=== PATIENT | female | born 1960 | race Caucasian/White ===

== ENCOUNTER → 2016-06-09 | Outpatient (CLI) | payer MEDICARE, OTHER ==
[2015-06-17 16:10] VITALS: BP 106/56
[~2016-06-09] MED LIST: ACET1TAB33 PO; ACET325T16 PO; ALPR0.25 PO; AMLO2.5T PO; ANAS1TAB PO; APIX2.5T PO; APIX5TAB PO; ASPI-482 PO; CALC-71 PO; CARV3.122 PO; CYCL1DRO EACHEYE; DEXT15DR5 EACHEYE; FERR325T31 PO; FOLI1TAB16 PO; FURO20TA3 PO; GABA-586 PO; LAMO200T PO; LEVO40CA PO; LEVO5TAB2 PO; LISI-338 PO; MESA800T2 PO; METF500T4 PO; METO25TA4 PO; METO25TA9 PO; MULT-18 PO; Metoprolol Tartrate PO; NITR1PAT5 TD; OMEG1CAP6 PO; PANT40TA5 PO; POTA10TA10 PO; POTA20TA4 PO; PROAIR HFA8.5 GM IH; RAMI5CAP PO; RANI150C PO; SOTA80TA PO; ZOLP10TA PO; atrovastatin
--- NOTE | 2016-06-09 13:12 | KCIC ---
PROCEDURE Two-view chest. HISTORY Post chest compressions for cardiac arrest 05/30/2016. Persistent pain in lower sternum and xiphoid area. Also lateral left ribs. COMPARISON Two-view chest June 12, 2015. FINDINGS Left chest dual chamber biventricular ICD is stable. There is moderate cardiomegaly, unchanged. Lungs are clear. No pleural effusion or pneumothorax. There appears to be acute slightly displaced fracture of the mid sternum. The inferior sternum is slightly offset anteriorly in relation to the upper sternum. A nondisplaced or subtle rib fracture could be obscured. There is significant overlap of ribs. No obvious displaced left rib fracture. IMPRESSION 1. No acute pulmonary process. Stable moderate cardiomegaly. 2. Acute slightly displaced fracture of the mid sternum. 3. As clinically warranted, CT could be performed to definitively evaluate for rib fractures. Electronically signed by: Daquan Carrillo MD (Jun 09, 2016 13:10:32)
== END | disposition home or self-care (01) ==
LOC: KCIC 11:53
PROVIDERS: ATTEND Family Medicine
DX: G89.29 Other chronic pain (principal)
CPT/HCPCS: 71020

== ENCOUNTER 2016-09-19 02:50 | Inpatient (IN) | payer MEDICARE, OTHER ==
[~2016-09-19] VITALS: Ht 182.9 cm; Wt 120.7 kg
[~2016-09-19 02:50] MED LIST changes: -POTA10TA10 PO; +POTA10TA12 PO; -SOTA80TA PO; +SOTA80TA48 PO
[2016-09-19] MEDS ORDERED: ONDANSETRON PF 4 MG/2 ML VIAL. IV ONE (03:30)
[2016-09-19] MEDS ORDERED: MAGNESIUM CITRATE 296 ML SOLUTION. PO ONE (03:30)
[2016-09-19] MEDS ORDERED: BISACODYL 5 MG TABLET.DR. PO PRN (03:30)
[2016-09-19] MEDS ORDERED: BISACODYL 10 MG SUPP.RECT. PR ONE (03:30)
[2016-09-19] MEDS ORDERED: ONDANSETRON ODT 4 MG TAB.RAPDIS. PO ONE (04:15)
[2016-09-19 04:36] LABS: BASO # 0.1 x10^3/uL (0.0-0.2); BASO % 0 % (0-3); EOS % 0 % (0-3); HEMATOCRIT 35.8 % (36.0-47.0); HEMOGLOBIN 11.5 g/dL (12.0-15.5); LYMPH # 0.9 x10^3/uL (1.0-4.8); LYMPH % 5 % (24-48); MEAN CORPUSCULAR HEMOGLOBIN 30 pg (25-35); MEAN CORPUSCULAR HGB CONC 32 g/dL (31-37); MEAN CORPUSCULAR VOLUME 93 fL (79-100); MONO % 8 % (0-9); NEUT % 86 % (31-73); PLATELET COUNT 310 x10^3/uL (140-400); RED BLOOD COUNT 3.86 x10^6/uL (3.50-5.40); RED CELL DISTRIBUTION WIDTH 15.3 % (11.5-14.5); WHITE BLOOD COUNT 15.8 x10^3/uL (4.0-11.0)
[2016-09-19 04:45] LABS: CALCIUM 9.1 mg/dL (8.5-10.1); CREATININE 2.1 mg/dL (0.6-1.0); GFR 24.2; POTASSIUM 4.9 mmol/L (3.5-5.1)
[2016-09-19 04:56] LABS: ALBUMIN 3.4 g/dL (3.4-5.0); TOTAL BILIRUBIN 1.5 mg/dL (0.2-1.0); TOTAL PROTEIN 6.8 g/dL (6.4-8.2)
--- NOTE | 2016-09-19 05:24 | PHYS DOC ---
Past Medical History Past Medical History: A-Fib, Anxiety, Cancer, CHF, Depression, Diabetes-Type II , Endometriosis, Hypertension Additional Past Medical Histor: Neuropathy Past Surgical History: Cholecystectomy, Hysterectomy, Tonsillectomy, Other Additional Past Surgical Histo: bilat breast lumpectomy, endometriosis, bowel resection, cataract bilat Alcohol Use: Rarely Drug Use: None Adult General Chief Complaint Chief Complaint: CONSTIPATION HPI HPI Patient is a 56 year old female who was recently admitted to the hospital secondary to irregular heartbeat/A. fib and had a recent ablation done ER Today from [facility] Secondary to Constipation. Patient Reports She Hasn't Moved Her Bowels for Approximately 3 Days. Patient Reports No Weakness of the Bathroom Daily. Patient Reports Her Last Bowel Movement Was about 2-3 Days Ago. Patient Reports That She Took a Suppository 2 Hours Ago without Any Relief. Patient Reports She's Been Drinking Milk of Magnesium Again without Any Relief. Patient Reports She Been Nauseous and Vomiting for Approximately 4 Days Now. Per the Nurse at the Facility with a Potassium Suppository inside Her Rectum Did Not Notice Any Impaction. Patient Denies Any Fevers Shakes Chills. No Dysuria Frequency or Urgency. Positive Nausea Vomiting. No Diarrhea. No Melena or Bright Red Blood per Rectum. Patient Denies Any History of Hypertension Diabetes CHF or COPD. Patient Denies Any Liver Lung or Kidney Problems in the past. Patient Is Status Post a Cholecystectomy, Hysterectomy, and a Bowel Resection Secondary to Endometriosis and Adhesions to Her Bowels. Patient Does Not Smoke or Drink. Patient Is Allergic to Erythromycin and Vicodin. Patient's physical exam is significant for diffuse tenderness to palpation. There was no rebound or guarding. There is normal active bowel sounds. Patient had tenderness greatest in her right upper quadrant. Patient's left groin has no bruits or thrills. There is surrounding bruising. Patient not exhibiting any signs or symptoms O be consistent with an acute surgical abdomen at this time. Patient's ER workup is significant for elevated liver function tests in the ER. Patient's BUN/creatinine are elevated from her prior admission. Patient had an obstruction series which was unremarkable. Had similar gas pattern was no free air or air-fluid levels. Upon arrival to the ER patient was given a bottle of mag citrate, Dulcolax suppositories and Dulcolax by mouth without any results of yet. Given the patient's elevated LFTs, her abdominal pain, her dehydration, and her constipation patient be admitted to the hospital for further workup and evaluation. A CT scan was ordered and is pending at the time. The case was discussed with Dr. mcdowell Review of Systems Review of Systems Constitutional: Denies fever or chills [] Eyes: Denies change in visual acuity, redness, or eye pain [] All other review systems are negative except as documented in the history of present illness portion. Current Medications Current Medications Current Medications Medications (Trade) Dose Ordered Sig/Carmelo Start Time Stop Time Status Last Admin Dose Admin Bisacodyl (Dulcolax Supp) 10 mg ONCE ONCE 09/19/16 03:30 09/19/16 03:31 DC 09/19/16 04:08 10 MG Bisacodyl (Dulcolax Tab) 10 mg PRN DAILY PRN 09/19/16 03:30 Magnesium Citrate (Citroma) 296 ml 1X ONCE 09/19/16 03:30 09/19/16 03:31 DC 09/19/16 04:08 296 ML Morphine Sulfate 4 mg PRN Q2HR PRN 09/19/16 05:15 09/20/16 05:14 UNV Ondansetron HCl (Zofran Odt) 4 mg 1X ONCE 09/19/16 04:15 09/19/16 04:16 DC 09/19/16 04:08 4 MG Ondansetron HCl (Zofran) 4 mg PRN Q8HRS PRN 09/19/16 05:30 09/20/16 05:29 Sodium Chloride 1,000 ml @ 125 mls/hr Q8H 09/19/16 05:12 09/20/16 05:11 UNV Allergies Allergies Allergies Coded Allergies Type Severity Reaction Last Updated Verified erythromycin base Allergy Intermediate 08/01/14 Yes hydrocodone Allergy Intermediate SEE COMMENT 06/09/15 Yes Physical Exam Physical Exam Constitutional: Well developed, well nourished, no acute distress, non-toxic appearance. [] HENT: Normocephalic, atraumatic, bilateral external ears normal, oropharynx moist, no oral exudates, nose normal. [] Eyes: PERRLA, EOMI, conjunctiva normal, no discharge. [] Neck: Normal range of motion, no tenderness, supple, no stridor. [] Cardiovascular:reg rate Lungs & Thorax: Bilateral breath sounds clear to auscultation [] Abdomen: Bowel sounds normal, soft, see above Skin: Warm, dry, no erythema, no rash. [] Back: No tenderness, no CVA tenderness. [] Extremities: No tenderness, no cyanosis, no clubbing, ROM intact, no edema. [] Neurologic: Alert and oriented X 3, normal motor function, normal sensory function, no focal deficits noted. [] Psychologic: Affect normal, judgement normal, mood normal. [] Current Patient Data Vital Signs Vital Signs Date Time Temp Pulse Resp B/P (MAP) Pulse Ox O2 Delivery O2 Flow Rate FiO2 09/19/16 03:05 98.2 99 18 153/79 (103) 97 Room Air 98.2 Lab Values Laboratory Tests Test 09/19/16 04:25 White Blood Count 15.8 x10^3/uL (4.0-11.0) H Red Blood Count 3.86 x10^6/uL (3.50-5.40) Hemoglobin 11.5 g/dL (12.0-15.5) L Hematocrit 35.8 % (36.0-47.0) L Mean Corpuscular Volume 93 fL (79-100) Mean Corpuscular Hemoglobin 30 pg (25-35) Mean Corpuscular Hemoglobin Concent 32 g/dL (31-37) Red Cell Distribution Width 15.3 % (11.5-14.5) H Platelet Count 310 x10^3/uL (140-400) Neutrophils (%) (Auto) 86 % (31-73) H Lymphocytes (%) (Auto) 5 % (24-48) L Monocytes (%) (Auto) 8 % (0-9) Eosinophils (%) (Auto) 0 % (0-3) Basophils (%) (Auto) 0 % (0-3) Neutrophils # (Auto) 13.7 x10^3uL (1.8-7.7) H Lymphocytes # (Auto) 0.9 x10^3/uL (1.0-4.8) L Monocytes # (Auto) 1.2 x10^3/uL (0.0-1.1) H Eosinophils # (Auto) 0.0 x10^3/uL (0.0-0.7) Basophils # (Auto) 0.1 x10^3/uL (0.0-0.2) Platelet Estimate Pending Sodium Level 135 mmol/L (136-145) L Potassium Level 4.9 mmol/L (3.5-5.1) Chloride Level 97 mmol/L (98-107) L Carbon Dioxide Level 23 mmol/L (21-32) Anion Gap 15 (6-14) H Blood Urea Nitrogen 34 mg/dL (7-20) H Creatinine 2.1 mg/dL (0.6-1.0) H Estimated GFR (Cockcroft-Gault) 24.2 BUN/Creatinine Ratio 16 (6-20) Glucose Level 152 mg/dL (70-99) H Calcium Level 9.1 mg/dL (8.5-10.1) Total Bilirubin 1.5 mg/dL (0.2-1.0) H Aspartate Amino Transferase (AST) 877 U/L (15-37) H Alanine Aminotransferase (ALT) 775 U/L (14-59) H Alkaline Phosphatase 121 U/L (46-116) H Total Protein 6.8 g/dL (6.4-8.2) Albumin 3.4 g/dL (3.4-5.0) Albumin/Globulin Ratio 1.0 (1.0-1.7) Lipase 303 U/L (73-393) Laboratory Tests 09/19/16 04:25 Laboratory Tests 09/19/16 04:25 EKG EKG [] Radiology/Procedures Radiology/Procedures [] Course & Med Decision Making Course & Med Decision Making Pertinent Labs and Imaging studies reviewed. (See chart for details) [] Dragon Disclaimer Dragon Disclaimer This electronic medical record was generated, in whole or in part, using a voice recognition dictation system. Departure Departure Impression: Primary Impression: Elevated LFTs Additional Impressions: Constipation Abdominal pain Dehydration Leukocytosis Disposition: ADMITTED INPATIENT Admitting Physician: Olive Mcdowell Referrals: EJ CLINTON MD (PCP) Problem Qualifiers Additional Impressions: Constipation Constipation type: unspecified constipation type Qualified Codes: K59.00 - Constipation, unspecified Abdominal pain Abdominal location: right upper quadrant Qualified Codes: R10.11 - Right upper quadrant pain Leukocytosis Leukocytosis type: unspecified Qualified Codes: D72.829 - Elevated white blood cell count, unspecified JEFF CARTER MD September 19, 2016 05:24
[2016-09-19] MEDS ORDERED: IV NORMAL SALINE 1000ML BAG 1,000 ML IV SCH (05:30)
--- NOTE | 2016-09-19 06:32 | RAD ---
PROCEDURE CT abdomen pelvis without contrast. HISTORY Abdominal pain and constipation x3 days. Elevated white blood cell count and liver function tests. TECHNIQUE Helical CT imaging of the abdomen and pelvis is performed without IV or oral contrast. PQRS: One or more the following individualized dose reduction techniques were utilized for the study: 1. Automated exposure control. 2. Adjustment of the mA and/or kV according to patient size. 3. Use of iterative reconstruction technique. COMPARISON CT abdomen and pelvis with contrast April 03, 2013. FINDINGS Surgical clips are seen in the inferior right breast. Correlate with surgical history. There is moderate cardiomegaly. There is small left pleural effusion. Left lower lobe consolidation and ground-glass opacities. Visualized right lung bases clear. Evaluation of solid organs and bowel is limited without oral and IV contrast, decreasing sensitivity for detection of pathology. Cholecystectomy. Small posterior right hepatic lobe cysts, better seen on prior study. The spleen, pancreas, and adrenal glands are normal. The abdominal aorta is normal in caliber. There is no hydronephrosis. No obvious abnormality of the stomach. No dilated small bowel is seen. No colon wall thickening is seen. The appendix is normal. No abdominal adenopathy or free fluid. There is moderate pelvic free fluid, probably abnormal. The urinary bladder is normal. Uterus surgically absent. No acute bone abnormality. IMPRESSION 1. Left lower lobe consolidation and ground-glass opacities may be bronchopneumonia or atelectasis or scarring. 2. There is small left pleural effusion. 3. Moderate cardiomegaly. 4. Moderate pelvic free fluid, probably abnormal unless patient is not postmenopausal. Electronically signed by: Daquan Carrillo MD (September 19, 2016 06:31:10)
--- NOTE | 2016-09-19 06:53 | RAD ---
Indication: Abdominal pain and constipation. Time of exam 0332 hours. No free air is identified. There are surgical clips in the gallbladder fossa. There appears to be a left pleural effusion. Cardiac defibrillator is in place. The bowel gas pattern is nonobstructive. Small amount of stool in the right and left colon are noted. Impression: Left pleural effusion. No acute feature in the abdomen is identified.
[2016-09-19] MEDS: ONDANSETRON PF 4 MG/2 ML VIAL. IV PRN ×3 (07:49→22:16)
[2016-09-19] MEDS ORDERED: ALLO100T PO (09:14)
[2016-09-19 09:31] LABS: NUCLEATED RBC 3; PLT ESTIMATE ADEQUATE (ADEQUATE)
[2016-09-19 09:32] LABS: POLYCHROMASIA PRESENT
[2016-09-19] MEDS ORDERED: MEXI200C PO (09:32)
[2016-09-19] MEDS ORDERED: SENN8.6T67 PO (09:32)
[2016-09-19] MEDS ORDERED: BISA10SU55 RC (09:32)
[2016-09-19] MEDS ORDERED: ONDA-35 PO (09:32)
[2016-09-19] MEDS ORDERED: MIDO10TA PO (09:32)
[2016-09-19] MEDS ORDERED: DIPH25CA58 PO (09:32)
[2016-09-19] MEDS ORDERED: ONDA4TAB10 SL (09:32)
[2016-09-19] MEDS ORDERED: DOCU100C5 PO (09:32)
[2016-09-19] MEDS ORDERED: TRIA15OI TOP (09:32)
[2016-09-19] MEDS ORDERED: BUME1TAB PO ×2 (09:32)
[2016-09-19] MEDS ORDERED: MAGN2400 PO (09:32)
[2016-09-19] MEDS ORDERED: NA P133E2 RC (09:32)
[2016-09-19] MEDS ORDERED: AMIO400T4 PO (09:32)
[2016-09-19] MEDS ORDERED: CALC-169 PO (09:32)
[2016-09-19] MEDS ORDERED: SPIR25TA3 PO (09:32)
[2016-09-19] MEDS ORDERED: MECL25TA3 PO (09:32)
[2016-09-19] MEDS: MORPHINE SULFATE 4 MG/ML DISP.SYRIN. IV PRN ×2 (09:44→20:35)
--- NOTE | 2016-09-19 09:53 | PDOC1 ---
History and Physical Past Medical History Cardiovascular: AFIB, CHF CENTRAL NERVOUS SYSTEM: Periperal neuropathy GI: GI bleed, Other Heme/Onc: Anemia NOS Hepatobiliary: No pertinent hx Psych: Anxiety, Bipolar, Depression Rheumatologic: No pertinent hx Infectious disease: No pertinent hx Renal/: Chronic renal insuff Endocrine: Osteoporosis, Other Past Surgical History Past Surgical History: Cataract Removal, Tonsillectomy, Hysterectomy, Colon Resection, Other Family History Family History: Cancer, Diabetes, Hypertension, Stroke Social History ALCOHOL: none Drugs: None Current Problem List Problem List Problems Medical Problems: (1) Abdominal pain Status: Acute (2) Constipation Status: Acute (3) Dehydration Status: Acute (4) Elevated LFTs Status: Acute (5) Leukocytosis Status: Acute Current Medications Current Medications Current Medications Medications (Trade) Dose Ordered Sig/Carmelo Start Time Stop Time Status Last Admin Dose Admin Bisacodyl (Dulcolax Supp) 10 mg ONCE ONCE 09/19/16 03:30 09/19/16 03:31 DC 09/19/16 04:08 10 MG Bisacodyl (Dulcolax Tab) 10 mg PRN DAILY PRN 09/19/16 03:30 Magnesium Citrate (Citroma) 296 ml 1X ONCE 09/19/16 03:30 09/19/16 03:31 DC 09/19/16 04:08 296 ML Morphine Sulfate 4 mg PRN Q2HR PRN 09/19/16 05:30 09/20/16 05:29 09/19/16 09:44 4 MG Ondansetron HCl (Zofran Odt) 4 mg 1X ONCE 09/19/16 04:15 09/19/16 04:16 DC 09/19/16 04:08 4 MG Ondansetron HCl (Zofran) 4 mg PRN Q8HRS PRN 09/19/16 05:30 09/20/16 05:29 09/19/16 07:49 4 MG Piperacillin Sod/ Tazobactam Sod 3.375 gm/Sodium Chloride 50 ml @ 100 mls/hr Q6HRS 09/19/16 12:00 UNV Sodium Chloride 1,000 ml @ 75 mls/hr [id number] 09/19/16 10:00 UNV Allergies Allergies Allergies Coded Allergies Type Severity Reaction Last Updated Verified erythromycin base Allergy Intermediate 08/01/14 Yes hydrocodone Allergy Intermediate SEE COMMENT 06/09/15 Yes ROS Review of System CONSTITUTIONAL: weakness, fatigues EYES: No recent changes SKIN: No rash or itching CARDIOVASCULAR: No chest pain, syncope, palpitations, or edema RESPIRATORY: No SOB or cough GASTROINTESTINAL: nausea, vomiting or abdominal pain NEUROLOGICAL: No headaches or weakness ENDOCRINE: No cold or heat intolerance GENITOURINARY: No urgency or frequency of urination MUSCULOSKELETAL: No back pain or joint pain LYMPHATICS: No enlarged lymph nodes PSYCHIATRIC: No anxiety or depression Physical Exam Physical Exam GEN.: No apparent distress. Alert and oriented. HEENT: Head is normocephalic, atraumatic NECK: Supple. no JVD LUNGS: crackles at bases, normal air flow anterior HEART: RRR, S1, S2 present. Peripheral pulses intact ABDOMEN: Soft, nontender. Positive bowel sounds. EXTREMITIES: Without any cyanosis. NEUROLOGIC: Normal speech, normal tone PSYCHIATRIC: Normal affect, normal mood. SKIN: dry, dehydrated. Vitals Vitals Vital Signs Date Time Temp Pulse Resp B/P (MAP) Pulse Ox O2 Delivery O2 Flow Rate FiO2 09/19/16 03:05 98.2 99 18 153/79 (103) 97 Room Air 98.2 Labs Labs Laboratory Tests Test 09/19/16 04:25 09/19/16 07:31 White Blood Count 15.8 x10^3/uL (4.0-11.0) Red Blood Count 3.86 x10^6/uL (3.50-5.40) Hemoglobin 11.5 g/dL (12.0-15.5) Hematocrit 35.8 % (36.0-47.0) Mean Corpuscular Volume 93 fL (79-100) Mean Corpuscular Hemoglobin 30 pg (25-35) Mean Corpuscular Hemoglobin Concent 32 g/dL (31-37) Red Cell Distribution Width 15.3 % (11.5-14.5) Platelet Count 310 x10^3/uL (140-400) Neutrophils (%) (Auto) 86 % (31-73) Lymphocytes (%) (Auto) 5 % (24-48) Monocytes (%) (Auto) 8 % (0-9) Eosinophils (%) (Auto) 0 % (0-3) Basophils (%) (Auto) 0 % (0-3) Neutrophils # (Auto) 13.7 x10^3uL (1.8-7.7) Lymphocytes # (Auto) 0.9 x10^3/uL (1.0-4.8) Monocytes # (Auto) 1.2 x10^3/uL (0.0-1.1) Eosinophils # (Auto) 0.0 x10^3/uL (0.0-0.7) Basophils # (Auto) 0.1 x10^3/uL (0.0-0.2) Segmented Neutrophils % 87 % (35-66) Band Neutrophils % 1 % (0-9) Lymphocytes % 5 % (24-48) Monocytes % 7 % (0-10) Nucleated Red Blood Cells 3 Platelet Estimate Adequate (ADEQUATE) Large Platelets Present Polychromasia Present Sodium Level 135 mmol/L (136-145) Potassium Level 4.9 mmol/L (3.5-5.1) Chloride Level 97 mmol/L (98-107) Carbon Dioxide Level 23 mmol/L (21-32) Anion Gap 15 (6-14) Blood Urea Nitrogen 34 mg/dL (7-20) Creatinine 2.1 mg/dL (0.6-1.0) Estimated GFR (Cockcroft-Gault) 24.2 BUN/Creatinine Ratio 16 (6-20) Glucose Level 152 mg/dL (70-99) Calcium Level 9.1 mg/dL (8.5-10.1) Total Bilirubin 1.5 mg/dL (0.2-1.0) Aspartate Amino Transf (AST/SGOT) 877 U/L (15-37) Alanine Aminotransferase (ALT/SGPT) 775 U/L (14-59) Alkaline Phosphatase 121 U/L (46-116) Total Protein 6.8 g/dL (6.4-8.2) Albumin 3.4 g/dL (3.4-5.0) Albumin/Globulin Ratio 1.0 (1.0-1.7) Lipase 303 U/L (73-393) Glucose (Fingerstick) 115 mg/dL (70-99) Laboratory Tests Test 09/19/16 04:25 09/19/16 07:31 White Blood Count 15.8 x10^3/uL (4.0-11.0) Red Blood Count 3.86 x10^6/uL (3.50-5.40) Hemoglobin 11.5 g/dL (12.0-15.5) Hematocrit 35.8 % (36.0-47.0) Mean Corpuscular Volume 93 fL (79-100) Mean Corpuscular Hemoglobin 30 pg (25-35) Mean Corpuscular Hemoglobin Concent 32 g/dL (31-37) Red Cell Distribution Width 15.3 % (11.5-14.5) Platelet Count 310 x10^3/uL (140-400) Neutrophils (%) (Auto) 86 % (31-73) Lymphocytes (%) (Auto) 5 % (24-48) Monocytes (%) (Auto) 8 % (0-9) Eosinophils (%) (Auto) 0 % (0-3) Basophils (%) (Auto) 0 % (0-3) Neutrophils # (Auto) 13.7 x10^3uL (1.8-7.7) Lymphocytes # (Auto) 0.9 x10^3/uL (1.0-4.8) Monocytes # (Auto) 1.2 x10^3/uL (0.0-1.1) Eosinophils # (Auto) 0.0 x10^3/uL (0.0-0.7) Basophils # (Auto) 0.1 x10^3/uL (0.0-0.2) Segmented Neutrophils % 87 % (35-66) Band Neutrophils % 1 % (0-9) Lymphocytes % 5 % (24-48) Monocytes % 7 % (0-10) Nucleated Red Blood Cells 3 Platelet Estimate Adequate (ADEQUATE) Large Platelets Present Polychromasia Present Sodium Level 135 mmol/L (136-145) Potassium Level 4.9 mmol/L (3.5-5.1) Chloride Level 97 mmol/L (98-107) Carbon Dioxide Level 23 mmol/L (21-32) Anion Gap 15 (6-14) Blood Urea Nitrogen 34 mg/dL (7-20) Creatinine 2.1 mg/dL (0.6-1.0) Estimated GFR (Cockcroft-Gault) 24.2 BUN/Creatinine Ratio 16 (6-20) Glucose Level 152 mg/dL (70-99) Calcium Level 9.1 mg/dL (8.5-10.1) Total Bilirubin 1.5 mg/dL (0.2-1.0) Aspartate Amino Transf (AST/SGOT) 877 U/L (15-37) Alanine Aminotransferase (ALT/SGPT) 775 U/L (14-59) Alkaline Phosphatase 121 U/L (46-116) Total Protein 6.8 g/dL (6.4-8.2) Albumin 3.4 g/dL (3.4-5.0) Albumin/Globulin Ratio 1.0 (1.0-1.7) Lipase 303 U/L (73-393) Glucose (Fingerstick) 115 mg/dL (70-99) VTE Prophylaxis Ordered VTE Prophylaxis Devices: Yes VTE Pharmacological Prophylaxi: Yes GAGE CAMARILLO MD September 19, 2016 09:53
[2016-09-19] MEDS: IV NORMAL SALINE 1000ML BAG 1,000 ML IV SCH ×2 (10:00→22:12)
[2016-09-19] MEDS ORDERED: VANCOMYCIN PER PHARMACY MC PRN (10:30)
[2016-09-19] MEDS ORDERED: hydrALAZINE 20 MG/ML VIAL. IVP PRN (10:30)
[2016-09-19] MEDS ORDERED: ALBUTEROL SULFATE 2.5 MG/3 ML NEBU. NEB PRN (10:30)
[2016-09-19] MEDS ORDERED: BISACODYL 10 MG SUPP.RECT. PR PRN (10:30)
[2016-09-19] MEDS ORDERED: MAGNESIUM HYDROXIDE 2,400 MG/30 ML ORAL.SUSP. PO PRN (10:30)
[2016-09-19] MEDS ORDERED: ONDANSETRON PF 4 MG/2 ML VIAL. IV PRN (10:30)
[2016-09-19] MEDS ORDERED: BISACODYL 10 MG SUPP.RECT. RC PRN (10:30)
[2016-09-19] MEDS ORDERED: ACETAMINOPHEN 325 MG TABLET. PO PRN (10:30)
[2016-09-19] MEDS ORDERED: VANCOMYCIN 2 GM in IV NORMAL SALINE 500ML BAG 500 ML IV ONE (10:45)
--- NOTE | 2016-09-19 10:47 | PDOC2 ---
GI CONSULT Reason For Consult: Abd pain, elevated LFTs HPI: HPI: 56 y/o female who underwent ablation for A Fib on 09/07 and has been in rehab. Since then, has had GI issues including n/v, decreased appetite, and constipation. GI consulted re: abd pain and abnormal LFTs which she has a history of. Labs as below include WBC 15.8, Hgb 11.5, Cr 2.1, bili 1.5 (has been 1.9 in the past), AST 877, ALT 775, Alk Phos 121 (some elevatetion in past) . Constipation unresolved w/ suppositories and Milk of Magnesia. Passed small hard stool on Monday; yesterday did not pass stool but noted some blood on her hand w/ wiping. Is on Eliquis, iron, PPI, IV atbx, Zofran, and Dulcolax here. Reports colonoscopy showing microscopic colitis (untreated) ~5 years ago. No previous EGD. Has not been taking pain meds recently. PMH: PMH: CHF, A Fib s/p ablation, HTN, DM (diet controlled), CKD, breast cancer, anxiety/ depression, endometriosis, peripheral neuropathy, tonsillectomy, colon resection for endometriosis, bilateral partial mastectomies and chemo/radiation , pacemaker, cataract extraction, partial hysterectomy, cholecystectomy FH: Family History: No pertinent hx (denies GI cancers) Social History: ALCOHOL: none Drugs: None ROS: GEN: Denies fevers, chills, sweats HEENT: Denies blurred vision, sore throat CV: Denies chest pain RESP: Denies shortness of air, cough GI: Per HPI : Denies hematuria, dysuria ENDO: Denies weight changes NEURO: Denies confusion, dizziness MSK: +weakness SKIN: Denies jaundice, pruritus Vitals: Vitals: Vital Signs Date Time Temp Pulse Resp B/P (MAP) Pulse Ox O2 Delivery O2 Flow Rate FiO2 09/19/16 03:05 98.2 99 18 153/79 (103) 97 Room Air 98.2 Labs: Labs: Laboratory Tests Test 09/19/16 04:25 09/19/16 07:31 White Blood Count 15.8 x10^3/uL (4.0-11.0) Red Blood Count 3.86 x10^6/uL (3.50-5.40) Hemoglobin 11.5 g/dL (12.0-15.5) Hematocrit 35.8 % (36.0-47.0) Mean Corpuscular Volume 93 fL (79-100) Mean Corpuscular Hemoglobin 30 pg (25-35) Mean Corpuscular Hemoglobin Concent 32 g/dL (31-37) Red Cell Distribution Width 15.3 % (11.5-14.5) Platelet Count 310 x10^3/uL (140-400) Neutrophils (%) (Auto) 86 % (31-73) Lymphocytes (%) (Auto) 5 % (24-48) Monocytes (%) (Auto) 8 % (0-9) Eosinophils (%) (Auto) 0 % (0-3) Basophils (%) (Auto) 0 % (0-3) Neutrophils # (Auto) 13.7 x10^3uL (1.8-7.7) Lymphocytes # (Auto) 0.9 x10^3/uL (1.0-4.8) Monocytes # (Auto) 1.2 x10^3/uL (0.0-1.1) Eosinophils # (Auto) 0.0 x10^3/uL (0.0-0.7) Basophils # (Auto) 0.1 x10^3/uL (0.0-0.2) Segmented Neutrophils % 87 % (35-66) Band Neutrophils % 1 % (0-9) Lymphocytes % 5 % (24-48) Monocytes % 7 % (0-10) Nucleated Red Blood Cells 3 Platelet Estimate Adequate (ADEQUATE) Large Platelets Present Polychromasia Present Sodium Level 135 mmol/L (136-145) Potassium Level 4.9 mmol/L (3.5-5.1) Chloride Level 97 mmol/L (98-107) Carbon Dioxide Level 23 mmol/L (21-32) Anion Gap 15 (6-14) Blood Urea Nitrogen 34 mg/dL (7-20) Creatinine 2.1 mg/dL (0.6-1.0) Estimated GFR (Cockcroft-Gault) 24.2 BUN/Creatinine Ratio 16 (6-20) Glucose Level 152 mg/dL (70-99) Calcium Level 9.1 mg/dL (8.5-10.1) Total Bilirubin 1.5 mg/dL (0.2-1.0) Aspartate Amino Transf (AST/SGOT) 877 U/L (15-37) Alanine Aminotransferase (ALT/SGPT) 775 U/L (14-59) Alkaline Phosphatase 121 U/L (46-116) Total Protein 6.8 g/dL (6.4-8.2) Albumin 3.4 g/dL (3.4-5.0) Albumin/Globulin Ratio 1.0 (1.0-1.7) Lipase 303 U/L (73-393) Glucose (Fingerstick) 115 mg/dL (70-99) Allergies: Coded Allergies: erythromycin base (Verified Allergy, Intermediate, 08/01/14) hydrocodone (Verified Allergy, Intermediate, SEE COMMENT, 06/09/15) PT REPORTS TO RN THAT SHE TOLERATES CODEINE WITHOUT COMPLICATIONS. Medications: Current Medications Medications (Trade) Dose Ordered Sig/Carmelo Route PRN Reason Start Time Stop Time Status Last Admin Dose Admin Bisacodyl (Dulcolax Supp) 10 mg ONCE ONCE FL 09/19/16 03:30 09/19/16 03:31 DC 09/19/16 04:08 Magnesium Citrate (Citroma) 296 ml 1X ONCE PO 09/19/16 03:30 09/19/16 03:31 DC 09/19/16 04:08 Ondansetron HCl (Zofran Odt) 4 mg 1X ONCE PO 09/19/16 04:15 09/19/16 04:16 DC 09/19/16 04:08 Ondansetron HCl (Zofran) 4 mg PRN Q8HRS PRN IV NAUSEA/VOMITING 09/19/16 05:30 09/20/16 05:29 09/19/16 07:49 Morphine Sulfate 4 mg PRN Q2HR PRN IV PAIN 09/19/16 05:30 09/20/16 05:29 09/19/16 09:44 Sodium Chloride 1,000 ml @ 125 mls/hr Q8H IV 09/19/16 05:30 09/20/16 05:29 09/19/16 07:50 Imaging: Imaging: CT A/P w/o contrast FINDINGS Surgical clips are seen in the inferior right breast. Correlate with surgical history. There is moderate cardiomegaly. There is small left pleural effusion. Left lower lobe consolidation and ground-glass opacities. Visualized right lung bases clear. Evaluation of solid organs and bowel is limited without oral and IV contrast, decreasing sensitivity for detection of pathology. Cholecystectomy. Small posterior right hepatic lobe cysts, better seen on prior study. The spleen, pancreas, and adrenal glands are normal. The abdominal aorta is normal in caliber. There is no hydronephrosis. No obvious abnormality of the stomach. No dilated small bowel is seen. No colon wall thickening is seen. The appendix is normal. No abdominal adenopathy or free fluid. There is moderate pelvic free fluid, probably abnormal. The urinary bladder is normal. Uterus surgically absent. No acute bone abnormality. IMPRESSION 1. Left lower lobe consolidation and ground-glass opacities may be bronchopneumonia or atelectasis or scarring. 2. There is small left pleural effusion. 3. Moderate cardiomegaly. 4. Moderate pelvic free fluid, probably abnormal unless patient is not postmenopausal. Acute abd series Impression: Left pleural effusion. No acute feature in the abdomen is identified. Abd US 2014 Impression: 1. Mildly echogenic liver, most likely from fatty liver disease. 2. Small hepatic cyst. 3. Status post cholecystectomy. Common bile duct is mildly dilated at 8 mm, possibly representing reservoir effect from patient's cholecystectomy. Correlate with laboratory values for any possibility of biliary obstruction. PE: GEN: holding emesis basin, hunched over on bed HEENT: Atraumatic, PERRL LUNGS: CTAB HEART: S1S2 ABD: BS+, epigastric tenderness to touch, RLQ pain EXTREMITY: No edema SKIN: No rashes, no jaundice NEURO/PSYCH: A & O 3 A/P: A/P: N/v, abd pain, constipation -per history, n/v and constipation since cardiac ablation ---> epigastric and RLQ tenderness on exam -h/o diet-controlled DM, denies GERD Elevated LFTs CRC screen -colonoscopy ~5 years ago Rectal bleeding -once yesterday Leukocytosis, elevated Cr -on IV atbx -per primary -- Check abd US, Hepatitis panel, and iron profile re: elevated LFTs. Agree w/ PPI. Will add Amitiza + Miralax for constipation. NYDIA PENALOZA September 19, 2016 10:47
[2016-09-19] MEDS: FERROUS SULFATE 325 MG TABLET. PO SCH (11:00)
[2016-09-19] MEDS: NITROGLYCERIN 0.2MG/HR PATCH. TD SCH (11:00)
[2016-09-19] MEDS ORDERED: APIXABAN 5 MG TABLET. PO SCH (11:00)
[2016-09-19] MEDS: PANTOPRAZOLE 40 MG TABLET.DR. PO SCH (11:00)
[2016-09-19] MEDS: FOLIC ACID 1 MG TABLET. PO SCH (11:00)
[2016-09-19] MEDS: ASPIRIN ENTERIC COATED 81 MG TABLET.DR. PO SCH (11:00)
[2016-09-19] MEDS ORDERED: SPIRONOLACTONE 25 MG TABLET PO SCH (11:00)
[2016-09-19] MEDS: ALLOPURINOL 100 MG TABLET. PO SCH (11:00)
[2016-09-19] MEDS: POLYETHYLENE GLYCOL 3350 17 GM PACKET. PO SCH (11:00)
[2016-09-19] MEDS: SENNOSIDES 8.6 MG TABLET PO SCH ×2 (11:00→20:38)
--- NOTE | 2016-09-19 11:30 | PDOC2 ---
CARDIAC CONSULT DATE OF CONSULT Date of Consult DATE: 09/19/16 TIME: 11:14 REASON FOR CONSULT Reason for Consult: AFIB, CHF, on AICD REFERRING PHYSICIAN Referring Physician: Luh SOURCE Source: Chart review, Patient HISTORY OF PRESENT ILLNESS HISTORY OF PRESENT ILLNESS This is a pleasant 56 yo female admitted for complains of constipation, nausea, vomiting, and abdominal pain. Pt recently had cardiac ablation in relation to her AFIB at . She did well with that procedure and [facility] Reports that she has not been having any palpitations, SOA, or chest pain. Denies any blood in her stool or vomit. Consult is for afib and currently stable. Presently she is still dry heaving when she was about to eat. She has not had any decent BM in the last 6 days and when she had one it was a hard stool. Her mother was at the bedside claiming that at she was shocked 22 times during her ablation procedure. Denies any fever or chills. PAST MEDICAL HISTORY Past Medical History Cardiovascular: AFIB, CHF (NICM) CENTRAL NERVOUS SYSTEM: Peripheral neuropathy GI: GI bleed, Other (colitis) Heme/Onc: Anemia NOS, breast CA with chemotherapy 2008 Hepatobiliary: No pertinent hx Psych: Anxiety, Bipolar, Depression Musculoskeletal: Osteoarthritis Rheumatologic: No pertinent hx Infectious disease: No pertinent hx ENT: No pertinent hx Renal/: Chronic renal insuff Endocrine: Osteoporosis, Other (endometriosis) Dermatology: No pertinent hx PAST SURGICAL HISTORY Past Surgical History Cataract Removal, Tonsillectomy, Hysterectomy, Colon Resection, Other (right partial mastectomy), 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, 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 ablation FAMILY HISTORY Family History Cancer (thyroid sister), Diabetes, Hypertension (father), Stroke (brotherat 54) SOCIAL HISTORY Smoke: No ALCOHOL: none Drugs: None Lives: Long-Term CURRENT MEDICATIONS CURRENT MEDICATIONS Current Medications Medications (Trade) Dose Ordered Sig/Carmelo Route PRN Reason Start Time Stop Time Status Last Admin Dose Admin Bisacodyl (Dulcolax Supp) 10 mg ONCE ONCE VT 09/19/16 03:30 09/19/16 03:31 DC 09/19/16 04:08 Magnesium Citrate (Citroma) 296 ml 1X ONCE PO 09/19/16 03:30 09/19/16 03:31 DC 09/19/16 04:08 Ondansetron HCl (Zofran Odt) 4 mg 1X ONCE PO 09/19/16 04:15 09/19/16 04:16 DC 09/19/16 04:08 Ondansetron HCl (Zofran) 4 mg PRN Q8HRS PRN IV NAUSEA/VOMITING 09/19/16 05:30 09/20/16 05:29 09/19/16 07:49 Morphine Sulfate 4 mg PRN Q2HR PRN IV PAIN 09/19/16 05:30 09/20/16 05:29 09/19/16 09:44 Sodium Chloride 1,000 ml @ 125 mls/hr Q8H IV 09/19/16 05:30 09/20/16 05:29 09/19/16 07:50 Sodium Chloride 1,000 ml @ 75 mls/hr [id number] IV 09/19/16 10:00 09/19/16 10:00 ALLERGIES ALLERGIES: Coded Allergies: erythromycin base (Verified Allergy, Intermediate, 08/01/14) hydrocodone (Verified Allergy, Intermediate, SEE COMMENT, 06/09/15) PT REPORTS TO RN THAT SHE TOLERATES CODEINE WITHOUT COMPLICATIONS. ROS Review of System 14 point ROS evaluated with pertinent positives noted per HPI PHYSICAL EXAM General: Alert, Oriented X3, Cooperative, No acute distress HEENT: Atraumatic, Mucous membr. moist/pink Lungs: Clear to auscultation, Normal air movement Heart: Normal S1, Normal S2 Abdomen: Soft, Other (diffuse tenderness) Extremities: No cyanosis, Other (1+ bilateral LE pitting edema) Skin: No breakdown, No significant lesion Neuro: Normal speech, Sensation intact Psych/Mental Status: Mental status NL, Mood NL MUSCULOSKELETAL: Osteoarthritic changes both hands VITALS VITALS Vital Signs Date Time Temp Pulse Resp B/P (MAP) Pulse Ox O2 Delivery O2 Flow Rate FiO2 09/19/16 03:05 98.2 99 18 153/79 (103) 97 Room Air 98.2 LABS Lab: Laboratory Tests Test 09/19/16 04:25 09/19/16 07:31 09/19/16 10:07 White Blood Count 15.8 x10^3/uL (4.0-11.0) Red Blood Count 3.86 x10^6/uL (3.50-5.40) Hemoglobin 11.5 g/dL (12.0-15.5) Hematocrit 35.8 % (36.0-47.0) Mean Corpuscular Volume 93 fL (79-100) Mean Corpuscular Hemoglobin 30 pg (25-35) Mean Corpuscular Hemoglobin Concent 32 g/dL (31-37) Red Cell Distribution Width 15.3 % (11.5-14.5) Platelet Count 310 x10^3/uL (140-400) Neutrophils (%) (Auto) 86 % (31-73) Lymphocytes (%) (Auto) 5 % (24-48) Monocytes (%) (Auto) 8 % (0-9) Eosinophils (%) (Auto) 0 % (0-3) Basophils (%) (Auto) 0 % (0-3) Neutrophils # (Auto) 13.7 x10^3uL (1.8-7.7) Lymphocytes # (Auto) 0.9 x10^3/uL (1.0-4.8) Monocytes # (Auto) 1.2 x10^3/uL (0.0-1.1) Eosinophils # (Auto) 0.0 x10^3/uL (0.0-0.7) Basophils # (Auto) 0.1 x10^3/uL (0.0-0.2) Segmented Neutrophils % 87 % (35-66) Band Neutrophils % 1 % (0-9) Lymphocytes % 5 % (24-48) Monocytes % 7 % (0-10) Nucleated Red Blood Cells 3 Platelet Estimate Adequate (ADEQUATE) Large Platelets Present Polychromasia Present Sodium Level 135 mmol/L (136-145) Potassium Level 4.9 mmol/L (3.5-5.1) Chloride Level 97 mmol/L (98-107) Carbon Dioxide Level 23 mmol/L (21-32) Anion Gap 15 (6-14) Blood Urea Nitrogen 34 mg/dL (7-20) Creatinine 2.1 mg/dL (0.6-1.0) Estimated GFR (Cockcroft-Gault) 24.2 BUN/Creatinine Ratio 16 (6-20) Glucose Level 152 mg/dL (70-99) Calcium Level 9.1 mg/dL (8.5-10.1) Total Bilirubin 1.5 mg/dL (0.2-1.0) Aspartate Amino Transf (AST/SGOT) 877 U/L (15-37) Alanine Aminotransferase (ALT/SGPT) 775 U/L (14-59) Alkaline Phosphatase 121 U/L (46-116) Total Protein 6.8 g/dL (6.4-8.2) Albumin 3.4 g/dL (3.4-5.0) Albumin/Globulin Ratio 1.0 (1.0-1.7) Lipase 303 U/L (73-393) Glucose (Fingerstick) 115 mg/dL (70-99) 96 mg/dL (70-99) ECHOCARDIOGRAM ECHOCARDIOGRAM <Conclusion> Severe LV systolic dysfunction. EF 10-15% Moderate to severe MR. Mild to moderate TR. DATE: 06/15/15 1317 STRESS TEST STRESS TEST PROCEDURE NARRATIVE Please see procedure log for procedure narrative. The left main coronary artery is a large size vessel . There is a 0% stenosis . The left anterior descending artery is a large size vessel . There is a 0% stenosis . The circumflex artery is a medium size vessel . There is a 0% stenosis . The right coronary artery is a large size vessel . There is a 0% stenosis . <Conclusion> DATE: 08/01/14 0848 ASSESSMENT/PLAN ASSESSMENT/PLAN 1. Abdominal pain/constipation with severe transaminitis: GI following. Hepatotoxicity? with amiodarone(400 mg daily), mesalamine, lamictal use and possible narcotic use 2. 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 NYHA 3. Last known EF 10-15%. Likely chemo induced with known use of adriamycin and cytoxan in the past 3. Chronic systolic CHF: compensated 4. LADI on CKD: suspect stage 3. Appears prerenal with 4 days of n/v. Nephrology has been consulted 5. PAFIB: 09/07/2016 cardiac ablation. on Eliquis, Hgb stable. 6. Orthostasis?: on midodrine Recommendations 1. Hgb and PLT stable. Continue on eliquis. PT INR today. 2. EKG. Place on tele monitor. Interrogate device. Obtain records from [facility] in regards to ablation 3. F/U TTE. 4. Continue with present regimen 5. Lipid panel and Mg. 6. Stop Amiodarone. No statin if there is any. Lamictal/mesalamine would also be synergistic defer this to PCP/GI 7. With amiodarone DCd. Will start on Dig po 0.125 mg and toprol XL 50 mg po daily (this was in her prior regimen) 8. Await records for EP recommendation from prior ablation and will discuss with primary machine bender Problems: BALTAZAR GREWAL APRN September 19, 2016 11:30
--- NOTE | 2016-09-19 11:51 | HP ---
ADMIT DATE: 09/19/2016 CHIEF COMPLAINT: Abdominal pain, nausea and vomiting. HISTORY OF PRESENT ILLNESS: A 56-year-old female patient with several comorbid conditions who recently admitted to the [facility] nearly one week ago for AFib. At the time, she had a cardioversion done; however it failed and later, she was requiring ablation. Post-ablation, the patient was transferred to [facility] for rehabilitate, however, she is having nausea, vomiting and abdominal pain and constipation for one week, but symptoms slowly got worse for last few days, maybe 2-3 days. She has tried several methods such as milk of magnesia, but no relief was seen and at the time of her presentation to the ER, she was having some tenderness. CT of the abdomen showed lower lobe suspected pneumonia. At the time of my examination this morning, the patient appears to be dehydrated and fatigued and weak and still complaining of abdominal pain and constipation. She denies any fever or chills. PAST MEDICAL HISTORY: 1. AFib, recent ablation at [facility]. 2. Anxiety. 3. Breast cancer, currently in remission. 4. Congestive heart failure with ejection fraction of 15%. 5. Type 2 diabetes mellitus, medically managed with oral medications. 6. Hypertension. 7. Neuropathy. PAST SURGICAL HISTORY: 1. Cholecystectomy. 2. Hysterectomy. 3. Tonsillectomy. 4. Bilateral breast lumpectomy. 5. Endometriosis. 6. Bowel resection. PERSONAL HISTORY: No smoking, no alcohol, and no drug abuse. FAMILY HISTORY: Please see my electronic H and P. REVIEW OF SYSTEMS: Please see my electronic H and P. PHYSICAL EXAMINATION: Please see my electronic H and P. LABORATORY DATA: WBC 15.8, hemoglobin is 11.5, MCV is 93, and platelets is 310 and segmented neutrophils 87%. Chemistry: Sodium is 135, potassium 4.9, chloride is 97, carbon dioxide 23, anion gap is 15, BUN is 34, creatinine is 2.1, GFR is 24.2, glucose is 152. AST is 877, ALT is 775, ALP is 121. IMAGING STUDIES: Acute abdomen and pelvis CT showed there is left lower lobe consolidation and ground glass opacities, moderate cardiomegaly and small left-sided pleural effusion. ASSESSMENT AND PLAN: 1. Left lower lobe suspected pneumonia, possible gram negative. 2. Congestive heart failure, history with ejection fraction of 15%. 3. Recent atrial fibrillation, history with status post ablation and [facility] recently one week ago. 4. Hypertension. 5. Depression. 6. Dehydration. 7. Acute kidney injury and chronic kidney disease. 8. History of breast cancer and currently in remission. PLAN: 1. She has been admitted to the hospital for constipation, nausea, and vomiting. I will start her on constipation protocol. She received Dulcolax suppository and milk of magnesia. I will wait for the response and also Gastroenterology has been following. Meanwhile, I will treat her symptomatically with IV Zofran and p.r.n. Reglan. 2. I will hold her diuretics Bumex at this time and consult Cardiology for further recommendations. 3. Mild IV hydration at 75 mL per hour. 4. I will start her on vancomycin and Zosyn for pneumonia and wait for response. 5. Antibiotics will be changed according to the patient's clinical response. 6. Consult Nephrology for further recommendations. I did not able to verify her baseline creatinine; however, the patient did have CKD. 7. Home medications reviewed and reconciled except for potassium and Bumex. 8. Continue oral anticoagulation as per the home medications. 9. Pharmacy has been consulted to dose vancomycin renal dosing. 10. Plan explained to the patient and mother at bedside. 11. Overall prognosis is guarded. GAGE CAMARILLO MD DR: BRYAN/hilary JOB#: [id number] / [id number] OJAQUIN
[2016-09-19] MEDS: LUBIPROSTONE 8 MCG CAPSULE PO SCH ×2 (12:21→17:34)
[2016-09-19] MEDS: DOCUSATE SODIUM 100 MG CAPSULE. PO SCH ×2 (12:21→20:38)
--- NOTE | 2016-09-19 12:21 | RAD ---
Indication: Elevated liver function tests. The liver is enlarged at 19.8 cm. There is increased echogenicity throughout the liver consistent with fatty infiltration. No discrete liver mass is identified. There is bidirectional flow identified within the portal vein. The gallbladder is surgically absent. No bile duct dilatation is seen. The pancreas and right kidney are unremarkable. There is no ascites. Impression: Hepatomegaly and fatty infiltration with bidirectional flow within the portal vein. No other significant abnormality is detected.
[2016-09-19] MEDS: lamoTRIgine 100 MG TABLET. PO SCH ×2 (12:22→20:39)
[2016-09-19] MEDS: MIDODRINE 5 MG TABLET PO SCH ×2 (12:22→20:44)
[2016-09-19] MEDS: PIPERACILLIN/TAZOBACTAM 3.375 GM in IV NORMAL SALINE 50ML 50 ML IV SCH ×2 (12:23→18:00)
[2016-09-19 12:24] LABS: PROTHROMBIN TIME PATIENT 60.1 SEC (11.7-14.0)
[2016-09-19 12:29] LABS: INR 7.6 (0.8-1.1)
--- NOTE | 2016-09-19 12:55 | EKG ---
[facility] [address] [place] [address] Test Date: 2016-09-19 Test Time: 12:53:51 Pat Name: CLOTILDE CLEMENTE Department: Room: 562 1 Gender: F Front Worker: ARTEM : [id number] Requested By: BALTAZAR GREWAL Order Number: [id number] Reading MD: Celio Taylor Measurements Intervals [place] Rate: 97 P: GA: QRS: -29 QRSD: 20 T: -45 QT: 388 QTc: 497 Interpretive Statements V-PACED SUSPECT ATRIAL FIBRILLATION UNDERLYING RHYTHM Electronically Signed On 09-26-2016 8:57:49 CDT by Celio Taylor
[2016-09-19] MEDS: DIGOXIN 125 MCG TABLET. PO SCH (13:00)
[2016-09-19] MEDS: ALPRAZolam 0.25 MG TABLET PO SCH ×3 (13:00→21:00)
[2016-09-19 13:33] LABS: BILIRUBIN,URINE SMALL (NEG); GLUCOSE,URINE NEGATIVE (NEG); NITRITE,URINE NEGATIVE (NEG); PROTEIN,URINE 100 mg/dL (NEG-TRACE)
[2016-09-19 13:41] LABS: MAGNESIUM 2.8 mg/dL (1.8-2.4)
[2016-09-19 13:52] LABS: BACTERIA,URINE MANY /HPF (0-FEW); SQUAMOUS EPITHELIAL CELL,UR MANY /LPF
[2016-09-19 13:53] LABS: CHOLESTEROL/HDL RATIO 5.5
[2016-09-19] MEDS: MEXILETINE HCL 200 MG CAPSULE PO SCH ×2 (14:00→20:39)
[2016-09-19] MEDS: GABAPENTIN 300 MG CAPSULE. PO SCH ×2 (14:00→20:38)
--- NOTE | 2016-09-19 14:43 | CARD ---
APPROVED REPORT EXAM: Two-dimensional and M-mode echocardiogram with Doppler and color Doppler. Other Information Quality : Average Rhythm : Pacemaker INDICATION Cardiomyopathy 2D DIMENSIONS Left Atrium(2D)5.4 (1.6-4.0cm)IVSd0.9 (0.7-1.1cm) Aortic Root(2D)2.8 (2.0-3.7cm)LVDd7.4 (3.9-5.9cm) LVOT Diameter2.3 (1.8-2.4cm)PWd0.9 (0.7-1.1cm) LVDs7.0 (2.5-4.0cm)FS (%) 6.6 % SV41.5 mlLVEF(%)14.2 (>50%) Mitral Valve MV E Ifgfbwql31.5cm/sMV E Peak Gr.71mmHg MV DECEL [id number] A Ntwdndqj871.0cm/s E/A Ratio0.8MV A [id number] Tricuspid Valve TR P. [id number]/sRAP [id number] TR Peak Gr.[id number] LEFT VENTRICLE The Left Ventricle is severely dilated. There is normal left ventricular wall thickness. Left ventric le systolic function is severely impaired. The Ejection Fraction is 10-15%. There is seere global hyp okinesis of the left ventricle. Tissue Doppler imaging reveals moderate left ventricular diastolic dy sfunction. There is no ventricular septal defect visualized. RIGHT VENTRICLE The right ventricle is normal size. The right ventricular systolic function is normal. There is a pac emake/ICDr lead seen in the right ventricle. ATRIA The left atrium is severely dilated. The right atrium size is normal. The interatrial septum is intac t with no evidence for an atrial septal defect or patent foramen ovale as noted on 2-D or Doppler yves ging. AORTIC VALVE The aortic valve is normal in structure and function. The aortic valve is trileaflet. Doppler and Col or Flow revealed trace aortic regurgitation. There is no significant aortic valvular stenosis. MITRAL VALVE The mitral valve is normal in structure. There is no mitral valve stenosis. Doppler and Color Flow re vealed moderate mitral regurgitation. TRICUSPID VALVE The tricuspid valve is normal in structure and function. Doppler and Color Flow revealed moderate tri cuspid regurgitation. The PA pressure was estimated at 46 mmHg. There is no tricuspid valve stenosis. PULMONIC VALVE The pulmonic valve is not well visualized. Doppler and Color Flow revealed trace pulmonic valvular re gurgitation. There is no pulmonic valvular stenosis. GREAT VESSELS The aortic root is normal in size. Pulmonary veins not recorded. The IVC is dilated and collapses <50 % with inspiration. PERICARDIAL EFFUSION There is moderate left pleural effusion. There is no evidence of significant pericardial effusion. Critical Notification Critical Value: No <Conclusion> Left ventricle systolic function is severely impaired. The Ejection Fraction is 10-15%. Trace aortic regurgitation. Moderate mitral regurgitation. Moderate tricuspid regurgitation. The PA pressure was estimated at 46 mmHg. There is no evidence of significant pericardial effusion.
[2016-09-19] MEDS ORDERED: PHYTONADIONE 10 MG/ML AMPUL. SQ ONE (14:45)
[2016-09-19 15:00] VITALS: BP 153/87
[2016-09-19] MEDS ORDERED: METOPROLOL SUCC 24HR ER 50 MG TAB.ER.24H. PO SCH (15:00)
[2016-09-19] MEDS ORDERED: METOCLOPRAMIDE HCL 10 MG/2 ML VIAL. IV ONE (17:00)
[2016-09-19 19:00] VITALS: BP 129/81
[2016-09-19] MEDS ORDERED: PROCHLORPERAZINE 10 MG/2 ML VIAL. IV PRN (20:30)
[2016-09-19] MEDS ORDERED: AMIODARONE HCL 200 MG TABLET. PO SCH (21:00)
[2016-09-19 23:00] VITALS: BP 105/66
[2016-09-20] VITALS (7 sets, daily range): BP systolic 87–115; BP diastolic 47–74
[2016-09-20] MEDS: PIPERACILLIN/TAZOBACTAM 3.375 GM in IV NORMAL SALINE 50ML 50 ML IV SCH ×2 (00:24→05:44)
[2016-09-20 01:31] LABS: HEP A IGM ABDY Negative (Negative)
[2016-09-20] MEDS: ONDANSETRON PF 4 MG/2 ML VIAL. IV PRN (05:44)
--- NOTE | 2016-09-20 06:40 | ACF ---
Admission Forms Criteria LIVER DISEASE COMPLICATIONS Clinical Indications for Admission to Inpatient Care (Place 'X' for any and all applicable criteria): Admission is indicated for patient with ANY ONE of the following(1)(2)(3)(4): [ ]I. Inpatient admission required rather than observation care because of ANY ONE of the following: [ ]a) Hemodynamic instability that is severe or persistent [ ]b) Severe electrolyte abnormalities requiring inpatient care [ ]c) Respiratory compromise that is severe or persistent [ ]d) Coagulation abnormal that is severe or persistent [ ]e) Severe pain requiring acute inpatient management [ ]f) Renal insufficiency that is severe or worsening [ ]g) Metabolic abnormalities (e.g., vomiting, hypoglycemia, acidosis) that are severe or persistent [ ]h) Hypovolemia or hypervolemia that is severe or persistent [ ]i) Absent bowel sounds with complete ileus(2) [ ]j) Signs of intestinal obstruction or peritonitis[A] [ ]k) IV fluid to replace significant ongoing losses (>3 L/m2 per day) [ ]l) Continuous IV infusion of anticoagulation, platelet inhibitor, vasoactive, or antiarrhythmic medication [ ]m) Percutaneous or open drainage (e.g., abscess, biliary tract) procedures [ ]n) Parenteral nutrition regimen that must be implemented on inpatient basis [ ]o) Other condition treatment or monitoring requiring inpatient admission [ ]II. Infected hepatic hydrothorax (eg, empyema) [ ]III. Hepatorenal syndrome (eg, elevated. creatinine with adequate volume status and negative evaluation for other cause)(8) [ ]IV. Spontaneous bacterial peritonitis [ ]V. Suspected infected ascites as indicated by ANY ONE of the following: [ ]a) Temp >100 degrees F (37.8 C ) [ ]b) High WBC count [ ]c) Abdominal pain or tenderness not relieved by paracentesis [ ]. New-onset or worsening hepatic encephalopathy(7) [ ]VII. Suspected fulminant hepatic failure (e.g., acute coagulopathy with hepatic encephalopathy or acute elevation of hepatic transaminases to more than 15 times baseline)(4) [X]VIII. Acute hepatitis (e.g., ALT and AST at least 3 times baseline) with coagulopathy or severe jaundice as indicated by ANY ONE of the following(9)(10): [ ]a) Bilirubin >20 mg/dL (342 moles/L)(11) [X]b) Acute elevation of PT to >50% above normal or INR >1.5 [ ] IX. Treatment of injury from hepatotoxin (e.g., acetaminophen) that requires inpatient monitoring [ ] X. Acute fatty liver of Extended stay beyond goal length of stay may be needed for(3)(7): [ ]a) Hepatorenal syndrome [ ]b) Severe or persistent hepatic encephalopathy [ ]c) Renal failure due to other causes associated with cirrhosis (e.g., hypovolemia) [ ]d) Severe or persistent coagulation abnormalities [ ]e) Refractory ascites, volume, or electrolyte abnormality [ ]f) Severe or persistent gastroesophageal bleeding [ ]g) Severe infectious or hepatotoxin-induced hepatitis (eg, acetaminophen) [ ]h) Hemodynamic instability that is severe or persistent The original [facility] content created by [employer] has been revised. The portions of the content which have been revised are identified through the use of italic text or in bold, and [facility] has neither reviewed nor approved the modified material. All other unmodified content is copyright [facility]. Please see references footnoted in the original [facility] edition 2016 Admission Criteria Met?: Yes AMBREEN BRUNO September 20, 2016 06:40
[2016-09-20 07:14] LABS: BASO # 0.1 x10^3/uL (0.0-0.2); BASO % 0 % (0-3); EOS % 0 % (0-3); HEMATOCRIT 36.4 % (36.0-47.0); HEMOGLOBIN 11.4 g/dL (12.0-15.5); LYMPH # 0.6 x10^3/uL (1.0-4.8); LYMPH % 2 % (24-48); MEAN CORPUSCULAR HEMOGLOBIN 30 pg (25-35); MEAN CORPUSCULAR HGB CONC 31 g/dL (31-37); MEAN CORPUSCULAR VOLUME 95 fL (79-100); MONO % 8 % (0-9); NEUT % 90 % (31-73); PLATELET COUNT 300 x10^3/uL (140-400); RED BLOOD COUNT 3.82 x10^6/uL (3.50-5.40); RED CELL DISTRIBUTION WIDTH 16.5 % (11.5-14.5)
[2016-09-20] MEDS: PANTOPRAZOLE 40 MG TABLET.DR. PO SCH (07:30)
[2016-09-20 07:44] LABS: CALCIUM 9.1 mg/dL (8.5-10.1); CREATININE 2.8 mg/dL (0.6-1.0); GFR 17.4; POTASSIUM 5.6 mmol/L (3.5-5.1)
[2016-09-20] MEDS: LUBIPROSTONE 8 MCG CAPSULE PO SCH ×2 (08:00→17:00)
[2016-09-20] MEDS: ASPIRIN ENTERIC COATED 81 MG TABLET.DR. PO SCH (08:00)
[2016-09-20] MEDS: FERROUS SULFATE 325 MG TABLET. PO SCH (08:00)
[2016-09-20 08:10] LABS: PROTHROMBIN TIME PATIENT 102.9 SEC (11.7-14.0)
[2016-09-20 08:21] LABS: INR > 15.0 (0.8-1.1)
[2016-09-20 08:46] LABS: NUCLEATED RBC 4
[2016-09-20 08:48] LABS: ANISOCYTOSIS SLIGHT; PLT ESTIMATE ADEQUATE (ADEQUATE); POLYCHROMASIA SLIGHT
[2016-09-20] MEDS: lamoTRIgine 100 MG TABLET. PO SCH (09:00)
[2016-09-20] MEDS: SENNOSIDES 8.6 MG TABLET PO SCH (09:00)
[2016-09-20] MEDS: GABAPENTIN 300 MG CAPSULE. PO SCH ×2 (09:00→14:00)
[2016-09-20] MEDS: POLYETHYLENE GLYCOL 3350 17 GM PACKET. PO SCH (09:00)
[2016-09-20] MEDS: DIGOXIN 125 MCG TABLET. PO SCH (09:00)
[2016-09-20] MEDS ORDERED: MEXILETINE HCL 200 MG CAPSULE PO SCH (09:00)
[2016-09-20] MEDS: ALPRAZolam 0.25 MG TABLET PO SCH ×3 (09:00→17:00)
[2016-09-20] MEDS: DOCUSATE SODIUM 100 MG CAPSULE. PO SCH (09:00)
[2016-09-20] MEDS ORDERED: PHYTONADIONE 10 MG/ML AMPUL. SQ ONE (09:00)
[2016-09-20] MEDS: NITROGLYCERIN 0.2MG/HR PATCH. TD SCH (09:00)
[2016-09-20] MEDS: FOLIC ACID 1 MG TABLET. PO SCH (09:00)
[2016-09-20] MEDS: ALLOPURINOL 100 MG TABLET. PO SCH (09:00)
--- NOTE | 2016-09-20 10:07 | PDOC ---
Provider Note Provider Note Onc consult dictated- [id number] Acute coagulopathy-- ? due to sepsis suggested by worsening neutrophilia, possibly causing acute liver failure? Recent complicated course at reviewed Ongoing orthostasis CHF FFP and Vit K ordered Will follow along. JUSTINO BARLOW DO September 20, 2016 10:07
--- NOTE | 2016-09-20 10:09 | PDOC ---
PROGRESS NOTES Chief Complaint Chief Complaint cc: nausea and vomiting A/P 1. Left lower lobe suspected pneumonia, possible gram negative, with leucocytosis, : on Zosyn, blood cx, ID consulted, Pharmacy to Dose vancomycin 2. Congestive heart failure, history with ejection fraction of 15%.: d/w cardiology, adjusting medication, holding Aldactone due to hyperkalemia, one time calcium gluconate, 3. Recent atrial fibrillation, history with status post ablation : holding amiodarone due to LFT 4. Hypertension: Stable. 5. Coagulopathy with elevated LFT: Unclear etiology, No ative bleeding, PT, APTT, D DIMER PENDING, ONCOLOGY FOLLOWING. 6. Dehydration with with intractable nausea and vomiting. 7. Acute kidney injury and chronic kidney disease with hyperkalemia: holding Lasix for now. 8. History of breast cancer and currently in remission. 9. prognosis guarded, d/w pt and mother at bedside, History of Present Illness History of Present Illness weak nausea no fever no chills. Vitals Vitals Vital Signs Date Time Temp Pulse Resp B/P (MAP) Pulse Ox O2 Delivery O2 Flow Rate FiO2 09/20/16 07:30 97.5 87 20 87/47 (60) 92 Room Air 97.5 Physical Exam General: Alert, Oriented X3, Cooperative, No acute distress Heart: Normal S1, Normal S2 Abdomen: Soft, Other (diffuse tenderness) Extremities: No cyanosis, Other (1+ bilateral LE pitting edema) Skin: No breakdown, No significant lesion Labs LABS Laboratory Tests Test 09/19/16 11:40 09/19/16 13:20 09/19/16 16:37 09/19/16 21:56 Prothrombin Time 60.1 SEC (11.7-14.0) Prothromb Time International Ratio 7.6 (0.8-1.1) Urine Collection Type Unknown Urine Color Fani Urine Clarity Cloudy Urine pH 5.0 Urine Specific [place] 1.025 Urine Protein 100 mg/dL (NEG-TRACE) Urine Glucose (UA) Negative mg/dL (NEG) Urine Ketones (Stick) Negative mg/dL (NEG) Urine Blood Trace (NEG) Urine Nitrite Negative (NEG) Urine Bilirubin Small (NEG) Urine Urobilinogen Dipstick 1.0 mg/dL (0.2 mg/dL) Urine Leukocyte Esterase Small (NEG) Urine RBC 3-5 /HPF (0-2) Urine WBC 5-10 /HPF (0-4) Urine Squamous Epithelial Cells Many /LPF Urine Amorphous Sediment Present /HPF Urine Bacteria Many /HPF (0-FEW) Urine Hyaline Casts Many /HPF Urine Mucus Marked /LPF Glucose (Fingerstick) 190 mg/dL (70-99) 167 mg/dL (70-99) Test 09/20/16 06:55 09/20/16 07:35 09/20/16 07:50 09/20/16 08:12 White Blood Count 34.0 x10^3/uL (4.0-11.0) Red Blood Count 3.82 x10^6/uL (3.50-5.40) Hemoglobin 11.4 g/dL (12.0-15.5) Hematocrit 36.4 % (36.0-47.0) Mean Corpuscular Volume 95 fL (79-100) Mean Corpuscular Hemoglobin 30 pg (25-35) Mean Corpuscular Hemoglobin Concent 31 g/dL (31-37) Red Cell Distribution Width 16.5 % (11.5-14.5) Platelet Count 300 x10^3/uL (140-400) Neutrophils (%) (Auto) 90 % (31-73) Lymphocytes (%) (Auto) 2 % (24-48) Monocytes (%) (Auto) 8 % (0-9) Eosinophils (%) (Auto) 0 % (0-3) Basophils (%) (Auto) 0 % (0-3) Neutrophils # (Auto) 30.4 x10^3uL (1.8-7.7) Lymphocytes # (Auto) 0.6 x10^3/uL (1.0-4.8) Monocytes # (Auto) 2.8 x10^3/uL (0.0-1.1) Eosinophils # (Auto) 0.0 x10^3/uL (0.0-0.7) Basophils # (Auto) 0.1 x10^3/uL (0.0-0.2) Segmented Neutrophils % 79 % (35-66) Band Neutrophils % 10 % (0-9) Lymphocytes % 3 % (24-48) Monocytes % 7 % (0-10) Metamyelocytes % 1 % (0-0) Nucleated Red Blood Cells 4 Platelet Estimate Adequate (ADEQUATE) Giant Platelets Few Polychromasia Slight Anisocytosis Slight Sodium Level 135 mmol/L (136-145) Potassium Level 5.6 mmol/L (3.5-5.1) Chloride Level 96 mmol/L (98-107) Carbon Dioxide Level 17 mmol/L (21-32) Anion Gap 22 (6-14) Blood Urea Nitrogen 52 mg/dL (7-20) Creatinine 2.8 mg/dL (0.6-1.0) Estimated GFR (Cockcroft-Gault) 17.4 Glucose Level 62 mg/dL (70-99) Calcium Level 9.1 mg/dL (8.5-10.1) Glucose (Fingerstick) 65 mg/dL (70-99) 67 mg/dL (70-99) Prothrombin Time 102.9 SEC (11.7-14.0) Prothromb Time International Ratio > 15.0 (0.8-1.1) Test 09/20/16 08:39 09/20/16 09:20 09/20/16 09:45 Glucose (Fingerstick) 67 mg/dL (70-99) 107 mg/dL (70-99) Fibrinogen 356 mg/dL (200-440) Assessment and Plan Assessmemt and Plan Problems Medical Problems: (1) Abdominal pain Status: Acute (2) Constipation Status: Acute (3) Dehydration Status: Acute (4) Elevated LFTs Status: Acute (5) Leukocytosis Status: Acute Problems: Comment Review of Relevant I have reviewed the following items dony (where applicable) has been applied. Labs Laboratory Tests Test 09/19/16 04:25 09/19/16 07:31 09/19/16 08:00 09/19/16 10:07 White Blood Count 15.8 x10^3/uL (4.0-11.0) Red Blood Count 3.86 x10^6/uL (3.50-5.40) Hemoglobin 11.5 g/dL (12.0-15.5) Hematocrit 35.8 % (36.0-47.0) Mean Corpuscular Volume 93 fL (79-100) Mean Corpuscular Hemoglobin 30 pg (25-35) Mean Corpuscular Hemoglobin Concent 32 g/dL (31-37) Red Cell Distribution Width 15.3 % (11.5-14.5) Platelet Count 310 x10^3/uL (140-400) Neutrophils (%) (Auto) 86 % (31-73) Lymphocytes (%) (Auto) 5 % (24-48) Monocytes (%) (Auto) 8 % (0-9) Eosinophils (%) (Auto) 0 % (0-3) Basophils (%) (Auto) 0 % (0-3) Neutrophils # (Auto) 13.7 x10^3uL (1.8-7.7) Lymphocytes # (Auto) 0.9 x10^3/uL (1.0-4.8) Monocytes # (Auto) 1.2 x10^3/uL (0.0-1.1) Eosinophils # (Auto) 0.0 x10^3/uL (0.0-0.7) Basophils # (Auto) 0.1 x10^3/uL (0.0-0.2) Segmented Neutrophils % 87 % (35-66) Band Neutrophils % 1 % (0-9) Lymphocytes % 5 % (24-48) Monocytes % 7 % (0-10) Nucleated Red Blood Cells 3 Platelet Estimate Adequate (ADEQUATE) Large Platelets Present Polychromasia Present Sodium Level 135 mmol/L (136-145) Potassium Level 4.9 mmol/L (3.5-5.1) Chloride Level 97 mmol/L (98-107) Carbon Dioxide Level 23 mmol/L (21-32) Anion Gap 15 (6-14) Blood Urea Nitrogen 34 mg/dL (7-20) Creatinine 2.1 mg/dL (0.6-1.0) Estimated GFR (Cockcroft-Gault) 24.2 BUN/Creatinine Ratio 16 (6-20) Glucose Level 152 mg/dL (70-99) Calcium Level 9.1 mg/dL (8.5-10.1) Magnesium Level 2.8 mg/dL (1.8-2.4) Total Bilirubin 1.5 mg/dL (0.2-1.0) Aspartate Amino Transf (AST/SGOT) 877 U/L (15-37) Alanine Aminotransferase (ALT/SGPT) 775 U/L (14-59) Alkaline Phosphatase 121 U/L (46-116) Total Protein 6.8 g/dL (6.4-8.2) Albumin 3.4 g/dL (3.4-5.0) Albumin/Globulin Ratio 1.0 (1.0-1.7) Triglycerides Level 93 mg/dL (0-150) Cholesterol Level 104 mg/dL (0-200) LDL Cholesterol, Calculated 66 mg/dL (0-100) VLDL Cholesterol, Calculated 19 mg/dL (0-40) Non-HDL Cholesterol Calculated 85 mg/dL (0-129) HDL Cholesterol 19 mg/dL (40-60) Cholesterol/HDL Ratio 5.5 Lipase 303 U/L (73-393) Hepatitis A IgM Antibody Negative (Negative) Hepatitis B Surface Antigen Negative (Negative) Hepatitis B Core IgM Antibody Negative (Negative) Hepatitis C Antibody <0.1 s/co ratio Glucose (Fingerstick) 115 mg/dL (70-99) 96 mg/dL (70-99) Nasal Screen MRSA (PCR) Negative (Negative) Test 09/19/16 11:40 09/19/16 13:20 09/19/16 16:37 09/19/16 21:56 Prothrombin Time 60.1 SEC (11.7-14.0) Prothromb Time International Ratio 7.6 (0.8-1.1) Urine Collection Type Unknown Urine Color Fani Urine Clarity Cloudy Urine pH 5.0 Urine Specific [place] 1.025 Urine Protein 100 mg/dL (NEG-TRACE) Urine Glucose (UA) Negative mg/dL (NEG) Urine Ketones (Stick) Negative mg/dL (NEG) Urine Blood Trace (NEG) Urine Nitrite Negative (NEG) Urine Bilirubin Small (NEG) Urine Urobilinogen Dipstick 1.0 mg/dL (0.2 mg/dL) Urine Leukocyte Esterase Small (NEG) Urine RBC 3-5 /HPF (0-2) Urine WBC 5-10 /HPF (0-4) Urine Squamous Epithelial Cells Many /LPF Urine Amorphous Sediment Present /HPF Urine Bacteria Many /HPF (0-FEW) Urine Hyaline Casts Many /HPF Urine Mucus Marked /LPF Glucose (Fingerstick) 190 mg/dL (70-99) 167 mg/dL (70-99) Test 09/20/16 06:55 09/20/16 07:35 09/20/16 07:50 09/20/16 08:12 White Blood Count 34.0 x10^3/uL (4.0-11.0) Red Blood Count 3.82 x10^6/uL (3.50-5.40) Hemoglobin 11.4 g/dL (12.0-15.5) Hematocrit 36.4 % (36.0-47.0) Mean Corpuscular Volume 95 fL (79-100) Mean Corpuscular Hemoglobin 30 pg (25-35) Mean Corpuscular Hemoglobin Concent 31 g/dL (31-37) Red Cell Distribution Width 16.5 % (11.5-14.5) Platelet Count 300 x10^3/uL (140-400) Neutrophils (%) (Auto) 90 % (31-73) Lymphocytes (%) (Auto) 2 % (24-48) Monocytes (%) (Auto) 8 % (0-9) Eosinophils (%) (Auto) 0 % (0-3) Basophils (%) (Auto) 0 % (0-3) Neutrophils # (Auto) 30.4 x10^3uL (1.8-7.7) Lymphocytes # (Auto) 0.6 x10^3/uL (1.0-4.8) Monocytes # (Auto) 2.8 x10^3/uL (0.0-1.1) Eosinophils # (Auto) 0.0 x10^3/uL (0.0-0.7) Basophils # (Auto) 0.1 x10^3/uL (0.0-0.2) Segmented Neutrophils % 79 % (35-66) Band Neutrophils % 10 % (0-9) Lymphocytes % 3 % (24-48) Monocytes % 7 % (0-10) Metamyelocytes % 1 % (0-0) Nucleated Red Blood Cells 4 Platelet Estimate Adequate (ADEQUATE) Giant Platelets Few Polychromasia Slight Anisocytosis Slight Sodium Level 135 mmol/L (136-145) Potassium Level 5.6 mmol/L (3.5-5.1) Chloride Level 96 mmol/L (98-107) Carbon Dioxide Level 17 mmol/L (21-32) Anion Gap 22 (6-14) Blood Urea Nitrogen 52 mg/dL (7-20) Creatinine 2.8 mg/dL (0.6-1.0) Estimated GFR (Cockcroft-Gault) 17.4 Glucose Level 62 mg/dL (70-99) Calcium Level 9.1 mg/dL (8.5-10.1) Glucose (Fingerstick) 65 mg/dL (70-99) 67 mg/dL (70-99) Prothrombin Time 102.9 SEC (11.7-14.0) Prothromb Time International Ratio > 15.0 (0.8-1.1) Test 09/20/16 08:39 09/20/16 09:20 09/20/16 09:45 Glucose (Fingerstick) 67 mg/dL (70-99) 107 mg/dL (70-99) Fibrinogen 356 mg/dL (200-440) Laboratory Tests Test 09/19/16 11:40 09/19/16 13:20 09/19/16 16:37 09/19/16 21:56 Prothrombin Time 60.1 SEC (11.7-14.0) Prothromb Time International Ratio 7.6 (0.8-1.1) Urine Collection Type Unknown Urine Color Fani Urine Clarity Cloudy Urine pH 5.0 Urine Specific [place] 1.025 Urine Protein 100 mg/dL (NEG-TRACE) Urine Glucose (UA) Negative mg/dL (NEG) Urine Ketones (Stick) Negative mg/dL (NEG) Urine Blood Trace (NEG) Urine Nitrite Negative (NEG) Urine Bilirubin Small (NEG) Urine Urobilinogen Dipstick 1.0 mg/dL (0.2 mg/dL) Urine Leukocyte Esterase Small (NEG) Urine RBC 3-5 /HPF (0-2) Urine WBC 5-10 /HPF (0-4) Urine Squamous Epithelial Cells Many /LPF Urine Amorphous Sediment Present /HPF Urine Bacteria Many /HPF (0-FEW) Urine Hyaline Casts Many /HPF Urine Mucus Marked /LPF Glucose (Fingerstick) 190 mg/dL (70-99) 167 mg/dL (70-99) Test 09/20/16 06:55 09/20/16 07:35 09/20/16 07:50 09/20/16 08:12 White Blood Count 34.0 x10^3/uL (4.0-11.0) Red Blood Count 3.82 x10^6/uL (3.50-5.40) Hemoglobin 11.4 g/dL (12.0-15.5) Hematocrit 36.4 % (36.0-47.0) Mean Corpuscular Volume 95 fL (79-100) Mean Corpuscular Hemoglobin 30 pg (25-35) Mean Corpuscular Hemoglobin Concent 31 g/dL (31-37) Red Cell Distribution Width 16.5 % (11.5-14.5) Platelet Count 300 x10^3/uL (140-400) Neutrophils (%) (Auto) 90 % (31-73) Lymphocytes (%) (Auto) 2 % (24-48) Monocytes (%) (Auto) 8 % (0-9) Eosinophils (%) (Auto) 0 % (0-3) Basophils (%) (Auto) 0 % (0-3) Neutrophils # (Auto) 30.4 x10^3uL (1.8-7.7) Lymphocytes # (Auto) 0.6 x10^3/uL (1.0-4.8) Monocytes # (Auto) 2.8 x10^3/uL (0.0-1.1) Eosinophils # (Auto) 0.0 x10^3/uL (0.0-0.7) Basophils # (Auto) 0.1 x10^3/uL (0.0-0.2) Segmented Neutrophils % 79 % (35-66) Band Neutrophils % 10 % (0-9) Lymphocytes % 3 % (24-48) Monocytes % 7 % (0-10) Metamyelocytes % 1 % (0-0) Nucleated Red Blood Cells 4 Platelet Estimate Adequate (ADEQUATE) Giant Platelets Few Polychromasia Slight Anisocytosis Slight Sodium Level 135 mmol/L (136-145) Potassium Level 5.6 mmol/L (3.5-5.1) Chloride Level 96 mmol/L (98-107) Carbon Dioxide Level 17 mmol/L (21-32) Anion Gap 22 (6-14) Blood Urea Nitrogen 52 mg/dL (7-20) Creatinine 2.8 mg/dL (0.6-1.0) Estimated GFR (Cockcroft-Gault) 17.4 Glucose Level 62 mg/dL (70-99) Calcium Level 9.1 mg/dL (8.5-10.1) Glucose (Fingerstick) 65 mg/dL (70-99) 67 mg/dL (70-99) Prothrombin Time 102.9 SEC (11.7-14.0) Prothromb Time International Ratio > 15.0 (0.8-1.1) Test 09/20/16 08:39 09/20/16 09:20 09/20/16 09:45 Glucose (Fingerstick) 67 mg/dL (70-99) 107 mg/dL (70-99) Fibrinogen 356 mg/dL (200-440) Medications Current Medications Ondansetron HCl (Zofran) 4 mg 1X ONCE IV ; Start 09/19/16 at 03:30; Stop at 03:54; Status DC Bisacodyl (Dulcolax Supp) 10 mg ONCE ONCE CA Last administered on 09/19/16 04: 08; Start 09/19/16 at 03:30; Stop 09/19/16 at 03:31; Status DC Bisacodyl (Dulcolax Tab) 10 mg PRN DAILY PRN PO CONSTIPATION; Start 09/19/16 at 03:30 Magnesium Citrate (Citroma) 296 ml 1X ONCE PO Last administered on 09/19/16 04 :08; Start 09/19/16 at 03:30; Stop 09/19/16 at 03:31; Status DC Ondansetron HCl (Zofran Odt) 4 mg 1X ONCE PO Last administered on 09/19/16 04: 08; Start 09/19/16 at 04:15; Stop 09/19/16 at 04:16; Status DC Ondansetron HCl (Zofran) 4 mg PRN Q8HRS PRN IV NAUSEA/VOMITING Last administered on 09/19/16 14:32; Start 09/19/16 at 05:30; Stop 09/20/16 at 05:29; Status DC Morphine Sulfate 4 mg PRN Q2HR PRN IV PAIN Last administered on 09/19/16 20:35 ; Start 09/19/16 at 05:30; Stop 09/20/16 at 05:29; Status DC Sodium Chloride 1,000 ml @ 125 mls/hr Q8H IV Last administered on 09/19/16 07: 50; Start 09/19/16 at 05:30; Stop 09/20/16 at 05:29; Status DC Piperacillin Sod/ Tazobactam Sod 3.375 gm/Sodium Chloride 50 ml @ 100 mls/hr Q6HRS IV Last administered on 09/20/16 05:44; Start 09/19/16 at 11:00 Sodium Chloride 1,000 ml @ 75 mls/hr [id number] IV Last administered on 09/19/16 22:12; Start 09/19/16 at 10:00 Allopurinol (Zyloprim) 100 mg DAILY PO ; Start 09/19/16 at 11:00 Alprazolam (Xanax) 0.25 mg QID PO Last administered on 09/19/16 17:34; Start at 13:00 Apixaban (Eliquis) 5 mg BID PO Last administered on 09/19/16 12:22; Start at 11:00; Stop 09/19/16 at 14:48; Status DC Aspirin (Ecotrin) 81 mg DAILYWBKFT PO ; Start 09/19/16 at 11:00 Bisacodyl (Dulcolax Supp) 10 mg PRN DAILY PRN RC CONSTIPATION; Start 09/19/16 at 10:30 Docusate Sodium (Colace) 100 mg BID PO Last administered on 09/19/16 20:38; Start 09/19/16 at 11:00 Ferrous Sulfate (Feosol) 325 mg DAILYWBKFT PO ; Start 09/19/16 at 11:00 Folic Acid (Folic Acid) 1 mg DAILY PO ; Start 09/19/16 at 11:00 Mexiletine HCl (Mexitil) 200 mg TID PO Last administered on 09/19/16 20:39; Start 09/19/16 at 14:00; Stop 09/20/16 at 08:51; Status DC Nitroglycerin (Nitro-Dur) 1 patch DAILY TD ; Start 09/19/16 at 11:00 Pantoprazole Sodium (Protonix) 40 mg DAILYAC PO ; Start 09/19/16 at 11:00 Sennosides (Senna) 8.6 mg BID PO Last administered on 09/19/16 20:38; Start 09/19/16 at 11:00 Spironolactone (Aldactone) 25 mg DAILY PO ; Start 09/19/16 at 11:00; Stop at 10:02; Status DC Amiodarone HCl (Cordarone) 400 mg QHS PO ; Start 09/19/16 at 21:00; Stop 09/19/16 at 21:00; Status DC Gabapentin (Neurontin) 300 mg TID PO Last administered on 09/19/16 20:38; Start 09/19/16 at 14:00 Lamotrigine (LaMICtal) 200 mg BID PO Last administered on 09/19/16 20:39; Start 09/19/16 at 10:45 Midodrine (Proamatine) 10 mg BID PO Last administered on 09/19/16 20:44; Start 09/19/16 at 11:00; Stop 09/20/16 at 08:51; Status DC Vancomycin HCl (Vanco Per Pharmacy) 1 each PRN DAILY PRN MC SEE COMMENTS Last administered on 09/19/16 15:36; Start 09/19/16 at 10:30 Lubiprostone (Amitiza) 24 mcg BIDWMEALS PO Last administered on 09/19/16 17:34 ; Start 09/19/16 at 12:00 Vancomycin HCl 2 gm/Sodium Chloride 500 ml @ 250 mls/hr 1X ONCE IV Last administered on 09/19/16 14:33; Start 09/19/16 at 10:45; Stop 09/19/16 at 12:44; Status DC Acetaminophen (Tylenol) 325 mg PRN Q6HRS PRN PO MILD PAIN / TEMP; Start at 10:30 Hydralazine HCl (Apresoline) 10 mg PRN Q4HRS PRN IVP ELEVATED BP, SEE COMMENTS ; Start 09/19/16 at 10:30 Ondansetron HCl (Zofran) 4 mg PRN Q8HRS PRN IV NAUSEA/VOMITING; Start 09/19/16 at 10:30; Stop 09/19/16 at 16:57; Status DC Albuterol Sulfate (Ventolin Neb Soln) 2.5 mg PRN Q4HRS PRN NEB SHORTNESS OF BREATH; Start 09/19/16 at 10:30 Magnesium Hydroxide (Milk Of Magnesia) 2,400 mg PRN Q12HR PRN PO CONSTIPATION; Start 09/19/16 at 10:30; Stop 09/19/16 at 14:48; Status DC Bisacodyl (Dulcolax Supp) 10 mg PRN DAILY PRN CA CONSTIPATION; Start 09/19/16 at 10:30 Polyethylene Glycol (miraLAX PACKET) 17 gm DAILY PO ; Start 09/19/16 at 11:00 Digoxin (Lanoxin) 125 mcg DAILY PO ; Start 09/19/16 at 13:00 Metoprolol Succinate (Toprol Xl) 50 mg DAILY PO ; Start 09/19/16 at 15:00 Phytonadione (Vitamin K) 5 mg 1X ONCE SQ Last administered on 09/19/16 17:34; Start 09/19/16 at 14:45; Stop 09/19/16 at 14:50; Status DC Vancomycin HCl 1.75 gm/Sodium Chloride 500 ml @ 250 mls/hr Q24H IV ; Start 09/20 at 15:00 Vancomycin HCl 1 each 1X ONCE MC ; Start 09/21/16 at 14:30; Stop 09/21/16 at 14 :31 Ondansetron HCl (Zofran) 4 mg PRN Q6HRS PRN IV NAUSEA/VOMITING Last administered on 09/20/16 05:44; Start 09/19/16 at 17:00 Metoclopramide HCl (Reglan) 5 mg 1X ONCE IV Last administered on 09/19/16 17: 35; Start 09/19/16 at 17:00; Stop 09/19/16 at 17:01; Status DC Prochlorperazine Edisylate (Compazine) 10 mg PRN Q6HRS PRN IV NAUSEA/VOMITING; Start 09/19/16 at 20:30; Stop 09/20/16 at 20:29 Mexiletine HCl (Mexitil) 200 mg BID PO ; Start 09/20/16 at 09:00 Midodrine (Proamatine) 10 mg PRN BID PRN PO HYPOTENSION; Start 09/20/16 at 21:00 Phytonadione (Vitamin K) 5 mg 1X ONCE SQ ; Start 09/20/16 at 09:00; Stop at 09:03; Status DC Phytonadione 10 mg/Sodium Chloride 51 ml @ 102 mls/hr 1X ONCE IV ; Start at 11:00; Stop 09/20/16 at 11:29 Calcium Gluconate (Calcium Gluconate) 1,000 mg 1X ONCE IVP ; Start 09/20/16 at 10:30; Stop 09/20/16 at 10:31 Active Scripts Active Acetaminophen-Cod #3 Tablet (Acetaminophen/Codeine Phosphate) 1 Each Tablet 1 Tab PO PRN Q4HRS PRN Pantoprazole Sodium 40 Mg Tablet.dr 40 Mg PO DAILYAC Mapap (Acetaminophen) 325 Mg Tablet 650 Mg PO PRN Q6HRS PRN Furosemide 20 Mg Tablet 20 Mg PO [id number] Metoprolol Tartrate 25 Mg Tablet 25 Mg PO BID Klor-Con M20 (Potassium Chloride) 20 Meq Tab.er.prt 1 Tab PO DAILY NITRO-DUR 0.2mg/hr (Nitroglycerin) 1 Each Patch.td24 1 Each TD DAILY Reported Zofran Odt (Ondansetron) 4 Mg Tab.rapdis 1 Tab SL PRN Q8HRS PRN Triamcinolone Acetonide 0.1% Oint (Triamcinolone Acetonide) 15 Gm Oint...g. 1 Mg TOP BID Spironolactone 25 Mg Tablet 25 Mg PO DAILY Sennosides 8.6 Mg Tablet 8.6 Mg PO BID Ondansetron Hcl 4 Mg Tablet 4 Mg PO PRN Q6HRS PRN Milk Of Magnesia (Magnesium Hydroxide) 2,400 Mg/10 Ml Oral.susp 2,400 Mg PO DAILY PRN Midodrine Hcl 10 Mg Tablet 10 Mg PO BID Mexiletine Hcl 200 Mg Capsule 200 Mg PO TID Meclizine Hcl 25 Mg Tablet 25 Mg PO PRN Q8HRS PRN Fleet Enema (Na Phos,M-B/Na Phos,Di-Ba) 133 Ml Enema 1 Each RC DAILY PRN Dulcolax (Bisacodyl) 10 Mg Supp.rect 10 Mg RC PRN DAILY PRN Docusate Sodium 100 Mg Capsule 1 Cap PO BID Calcium Citrate - Vit D3 Tab (Calcium Citrate/Vitamin D3) 1 Each Tablet 1 Each PO BID Bumetanide 1 Mg Tablet 1 Mg PO DAILY Bumetanide 1 Mg Tablet 0.5 Mg PO DAILY16 Benadryl (Diphenhydramine Hcl) 25 Mg Capsule 50 Mg PO PRN Q6HRS PRN Amiodarone Hcl 400 Mg Tablet 400 Mg PO HS Allopurinol 100 Mg Tablet 100 Mg PO DAILY Artificial Tears Eye Drops (Dextran 70/Hypromellose) 15 Ml Drops 1 Drop EACHEYE PRN QID PRN Restasis (Cyclosporine) 1 Each Droperette 1 Drop EACHEYE BID Eliquis (Apixaban) 5 Mg Tablet 5 Mg PO BID Eliquis (Apixaban) 5 Mg Tablet 5 Mg PO BID Gabapentin 300 Mg Capsule 300 Mg PO TID Proair Hfa Inhaler (Albuterol Sulfate) 8.5 Gm Hfa.aer.ad 2 Puff IH PRN Q4-6HRS Calcium 600 + Vit D Caplet (Calcium Carbonate/Vitamin D3) 1 Each Tablet 2 Each PO BID Levocetirizine Dihydrochloride 5 Mg Tablet 5 Mg PO QEVNG Asacol Hd (Mesalamine) 800 Mg Tablet.dr 800 Mg PO TID Iron (Ferrous Sulfate) 325 Mg Tablet 325 Mg PO DAILY Aspir 81 (Aspirin) 81 Mg Tablet.dr 81 Mg PO DAILY Xanax (Alprazolam) 0.25 Mg Tablet 0.25 Mg PO QID Lamotrigine 200 Mg Tablet 200 Mg PO BID Ambien (Zolpidem Tartrate) 10 Mg Tablet 10 Mg PO HS PRN Daily Vitamin (Multivitamin) 1 Each Tablet 1 Each PO DAILY Folic Acid 1 Mg Tablet 1 Mg PO DAILY Fish Oil 1,000 Mg Capsule ([place]-3 Fatty Acids/Fish Oil) 1 Each Capsule 1 Each PO DAILY Vitals/I & O Vital Sign - Last 24 Hours 09/19/16 09/19/16 09/19/16 09/19/16 12:14 12:22 13:00 15:00 Pulse 99 84 84 B/P (MAP) 153/79 153/87 153/87 Pulse Ox 97 O2 Delivery Room Air 09/19/16 09/19/16 09/19/16 09/19/16 15:00 19:00 20:00 20:35 Temp 98.0 98.4 98.0 98.4 Pulse 84 79 Resp 18 20 B/P (MAP) 153/87 (109) 129/81 (97) Pulse Ox 97 91 O2 Delivery Room Air Room Air Room Air Room Air 09/19/16 09/19/16 09/20/16 09/20/16 20:44 23:00 03:00 07:30 Temp 98.4 97.9 97.5 98.4 97.9 97.5 Pulse 80 77 84 87 Resp 20 20 20 B/P (MAP) 109/74 105/66 (79) 97/58 (71) 87/47 (60) Pulse Ox 90 90 92 O2 Delivery Room Air Room Air Room Air Intake and Output 09/19/16 09/19/16 09/20/16 15:00 23:00 07:00 Intake Total 0 ml 350 ml Output Total 200 ml Balance 0 ml 150 ml GAGE CAMARILLO MD September 20, 2016 10:09
[2016-09-20] MEDS ORDERED: CALCIUM GLUCONATE 1,000 MG/10 ML VIAL. IVP ONE (10:30)
[2016-09-20] MEDS ORDERED: PHYTONADIONE (VIT K1) 10 MG in IV NORMAL SALINE 50ML 50 ML IV ONE (11:00)
--- NOTE | 2016-09-20 11:07 | PDOC ---
CARDIO Progress Notes Date and Time Date of Service 09/20/2016 Time of Evaluation 1030 Subjective Subjective: No Chest Pain, No shortness of breath, No Palpitations, No Dizziness, Other (does not feel good, nauseated all night) Vitals Vitals Vital Signs Date Time Temp Pulse Resp B/P (MAP) Pulse Ox O2 Delivery O2 Flow Rate FiO2 09/20/16 07:30 97.5 87 20 87/47 (60) 92 Room Air 97.5 Weight Weight [ ] Input and Output Intake and Output Intake and Output 09/20/16 06:59 Intake Total 350 ml Output Total 200 ml Balance 150 ml Intake Oral 300 ml IV Total 50 ml Output Urine Total 200 ml # Voids 3 Laboratory Labs Laboratory Tests Test 09/19/16 11:40 09/19/16 13:20 09/19/16 16:37 09/19/16 21:56 Prothrombin Time 60.1 SEC (11.7-14.0) Prothromb Time International Ratio 7.6 (0.8-1.1) Urine Collection Type Unknown Urine Color Fani Urine Clarity Cloudy Urine pH 5.0 Urine Specific [place] 1.025 Urine Protein 100 mg/dL (NEG-TRACE) Urine Glucose (UA) Negative mg/dL (NEG) Urine Ketones (Stick) Negative mg/dL (NEG) Urine Blood Trace (NEG) Urine Nitrite Negative (NEG) Urine Bilirubin Small (NEG) Urine Urobilinogen Dipstick 1.0 mg/dL (0.2 mg/dL) Urine Leukocyte Esterase Small (NEG) Urine RBC 3-5 /HPF (0-2) Urine WBC 5-10 /HPF (0-4) Urine Squamous Epithelial Cells Many /LPF Urine Amorphous Sediment Present /HPF Urine Bacteria Many /HPF (0-FEW) Urine Hyaline Casts Many /HPF Urine Mucus Marked /LPF Glucose (Fingerstick) 190 mg/dL (70-99) 167 mg/dL (70-99) Test 09/20/16 06:55 09/20/16 07:35 09/20/16 07:50 09/20/16 08:12 White Blood Count 34.0 x10^3/uL (4.0-11.0) Red Blood Count 3.82 x10^6/uL (3.50-5.40) Hemoglobin 11.4 g/dL (12.0-15.5) Hematocrit 36.4 % (36.0-47.0) Mean Corpuscular Volume 95 fL (79-100) Mean Corpuscular Hemoglobin 30 pg (25-35) Mean Corpuscular Hemoglobin Concent 31 g/dL (31-37) Red Cell Distribution Width 16.5 % (11.5-14.5) Platelet Count 300 x10^3/uL (140-400) Neutrophils (%) (Auto) 90 % (31-73) Lymphocytes (%) (Auto) 2 % (24-48) Monocytes (%) (Auto) 8 % (0-9) Eosinophils (%) (Auto) 0 % (0-3) Basophils (%) (Auto) 0 % (0-3) Neutrophils # (Auto) 30.4 x10^3uL (1.8-7.7) Lymphocytes # (Auto) 0.6 x10^3/uL (1.0-4.8) Monocytes # (Auto) 2.8 x10^3/uL (0.0-1.1) Eosinophils # (Auto) 0.0 x10^3/uL (0.0-0.7) Basophils # (Auto) 0.1 x10^3/uL (0.0-0.2) Segmented Neutrophils % 79 % (35-66) Band Neutrophils % 10 % (0-9) Lymphocytes % 3 % (24-48) Monocytes % 7 % (0-10) Metamyelocytes % 1 % (0-0) Nucleated Red Blood Cells 4 Platelet Estimate Adequate (ADEQUATE) Giant Platelets Few Polychromasia Slight Anisocytosis Slight Sodium Level 135 mmol/L (136-145) Potassium Level 5.6 mmol/L (3.5-5.1) Chloride Level 96 mmol/L (98-107) Carbon Dioxide Level 17 mmol/L (21-32) Anion Gap 22 (6-14) Blood Urea Nitrogen 52 mg/dL (7-20) Creatinine 2.8 mg/dL (0.6-1.0) Estimated GFR (Cockcroft-Gault) 17.4 Glucose Level 62 mg/dL (70-99) Calcium Level 9.1 mg/dL (8.5-10.1) Glucose (Fingerstick) 65 mg/dL (70-99) 67 mg/dL (70-99) Prothrombin Time 102.9 SEC (11.7-14.0) Prothromb Time International Ratio > 15.0 (0.8-1.1) Test 09/20/16 08:39 09/20/16 09:20 09/20/16 09:45 Glucose (Fingerstick) 67 mg/dL (70-99) 107 mg/dL (70-99) Fibrinogen 356 mg/dL (200-440) Physical Exam HEENT: Neck Supple W Full Motion Chest: Symmetric LUNGS: Other (bibasilar crackles ) Heart: S1S2, RRR (V paced) Abdomen: Other (diffuse tenderness) Extremities: No Calf Tenderness, Other (1+bilateral LE pitting edema) Neurology: alert, oriented, follow commands Assessment Assessment 1. Abdominal pain/constipation/hepatomegaly with severe transaminitis: GI following. Polypharmacy (mainly amiodarone, mexilitine, benzo, mesalamine, narcotic, lamictal) induced hepatoxicity? Continued nausea 2. 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 NYHA 3. Unchanged EF 10-15%. V paced. Normal functioning device, no significant arrhythmias per interrogation. A paced 17 %, V paced >99%, Corevue borderline overload. 3. Chronic systolic CHF: compensated 4. LADI on CKD: K 5.6. Worse today, likely prerenal, IVF ongoing with caution. 5. PAFIB: 09/07/2016 cardiac ablation. Hgb stable. V paced. 6. Orthostasis?: unable to confirm due to inability for positional changes. 7. Coagulopathy: INR >15 8. Leukocytosis: CT with pneumonia? Sepsis? Reactive? NO fever. 9. Hypoglycemia: unable to tolerate po with liver dysfunction. Defer to PCP Recommendations 1. Child Shearer score 8, class B. Cardiac med adjustments as follows. Amiodarone Dcd, decreased mexiletine, continue with Dig, will decrease toprol XL for now. 2. Records from (Dr. Schulz) in regards to ablation is pending 3. Consult hematology 4. Nephrology and ID consult pending 5. PCXR, LFTs, TSH 6. Continue to hold eliquis. Vitamin K BALTAZAR GREWAL APRN September 20, 2016 11:06
[2016-09-20] MEDS ORDERED: SODIUM POLYSTYRENE SULFONATE 15 GM/60 ML ORAL.SUSP. PO ONE (11:45)
[2016-09-20 11:56] LABS: ALBUMIN 3.5 g/dL (3.4-5.0); DIRECT BILIRUBIN 1.2 mg/dL (0.0-0.2); TOTAL BILIRUBIN 2.8 mg/dL (0.2-1.0); TOTAL PROTEIN 6.3 g/dL (6.4-8.2)
--- NOTE | 2016-09-20 12:04 | PDOC2 ---
CONSULT Date of Consult Date of Consult DATE: 09/20/16 TIME: 11:59 Reason for Consult Reason for Consult: LADI Referring Physician Referring Physician: RABIA Identification/Chief Complaint Chief Complaint WEAKNESS History of Present Illness Reason for Visit: THIS IS A 56 YR OLD WITH N/V AND DIARRHEA WHILE AT REHAB. SHE HAS BEEN UNDERGOING REHAB AFTER ABLATION FOR AFIB AT [facility]. SHE HAS CM WITH AN EF OF ONLY 15%. NO APPARENT KIDNEY PROBLEMS. ON ADMIT CR IS 2.5 TO 2.5 AND K IS 5.6. APPETITE HAS NOT BEEN GOOD Past Medical History Cardiovascular: AFIB, CHF CENTRAL NERVOUS SYSTEM: Periperal neuropathy GI: GI bleed, Other Heme/Onc: Anemia NOS Hepatobiliary: No pertinent hx Psych: Anxiety, Bipolar, Depression Musculoskeletal: Osteoarthritis Rheumatologic: No pertinent hx Infectious disease: No pertinent hx Renal/: Chronic renal insuff Endocrine: Osteoporosis, Other Past Surgical History Past Surgical History: Cataract Removal, Tonsillectomy, Hysterectomy, Colon Resection, Other Family History Family History: Cancer, Diabetes, Hypertension, Stroke Social History No ALCOHOL: none Drugs: None Lives: [facility] Domestic Violence: Neg Current Problem List Problem List Problems Medical Problems: (1) Abdominal pain Status: Acute (2) Constipation Status: Acute (3) Dehydration Status: Acute (4) Elevated LFTs Status: Acute (5) Leukocytosis Status: Acute Current Medications Current Medications Current Medications Ondansetron HCl (Zofran) 4 mg 1X ONCE IV ; Start 09/19/16 at 03:30; Stop at 03:54; Status DC Bisacodyl (Dulcolax Supp) 10 mg ONCE ONCE MS Last administered on 09/19/16 04: 08; Start 09/19/16 at 03:30; Stop 09/19/16 at 03:31; Status DC Bisacodyl (Dulcolax Tab) 10 mg PRN DAILY PRN PO CONSTIPATION; Start 09/19/16 at 03:30 Magnesium Citrate (Citroma) 296 ml 1X ONCE PO Last administered on 09/19/16 04 :08; Start 09/19/16 at 03:30; Stop 09/19/16 at 03:31; Status DC Ondansetron HCl (Zofran Odt) 4 mg 1X ONCE PO Last administered on 09/19/16 04: 08; Start 09/19/16 at 04:15; Stop 09/19/16 at 04:16; Status DC Ondansetron HCl (Zofran) 4 mg PRN Q8HRS PRN IV NAUSEA/VOMITING Last administered on 09/19/16 14:32; Start 09/19/16 at 05:30; Stop 09/20/16 at 05:29; Status DC Morphine Sulfate 4 mg PRN Q2HR PRN IV PAIN Last administered on 09/19/16 20:35 ; Start 09/19/16 at 05:30; Stop 09/20/16 at 05:29; Status DC Sodium Chloride 1,000 ml @ 125 mls/hr Q8H IV Last administered on 09/19/16 07: 50; Start 09/19/16 at 05:30; Stop 09/20/16 at 05:29; Status DC Piperacillin Sod/ Tazobactam Sod 3.375 gm/Sodium Chloride 50 ml @ 100 mls/hr Q6HRS IV Last administered on 09/20/16 05:44; Start 09/19/16 at 11:00 Sodium Chloride 1,000 ml @ 75 mls/hr [id number] IV Last administered on 09/19/16 22:12; Start 09/19/16 at 10:00 Allopurinol (Zyloprim) 100 mg DAILY PO ; Start 09/19/16 at 11:00 Alprazolam (Xanax) 0.25 mg QID PO Last administered on 09/19/16 17:34; Start at 13:00 Apixaban (Eliquis) 5 mg BID PO Last administered on 09/19/16 12:22; Start at 11:00; Stop 09/19/16 at 14:48; Status DC Aspirin (Ecotrin) 81 mg DAILYWBKFT PO ; Start 09/19/16 at 11:00 Bisacodyl (Dulcolax Supp) 10 mg PRN DAILY PRN RC CONSTIPATION; Start 09/19/16 at 10:30; Status Cancel Docusate Sodium (Colace) 100 mg BID PO Last administered on 09/19/16 20:38; Start 09/19/16 at 11:00 Ferrous Sulfate (Feosol) 325 mg DAILYWBKFT PO ; Start 09/19/16 at 11:00 Folic Acid (Folic Acid) 1 mg DAILY PO ; Start 09/19/16 at 11:00 Mexiletine HCl (Mexitil) 200 mg TID PO Last administered on 09/19/16 20:39; Start 09/19/16 at 14:00; Stop 09/20/16 at 08:51; Status DC Nitroglycerin (Nitro-Dur) 1 patch DAILY TD ; Start 09/19/16 at 11:00 Pantoprazole Sodium (Protonix) 40 mg DAILYAC PO ; Start 09/19/16 at 11:00 Sennosides (Senna) 8.6 mg BID PO Last administered on 09/19/16 20:38; Start 09/19/16 at 11:00 Spironolactone (Aldactone) 25 mg DAILY PO ; Start 09/19/16 at 11:00; Stop at 10:02; Status DC Amiodarone HCl (Cordarone) 400 mg QHS PO ; Start 09/19/16 at 21:00; Stop 09/19/16 at 21:00; Status DC Gabapentin (Neurontin) 300 mg TID PO Last administered on 09/19/16 20:38; Start 09/19/16 at 14:00 Lamotrigine (LaMICtal) 200 mg BID PO Last administered on 09/19/16 20:39; Start 09/19/16 at 10:45 Midodrine (Proamatine) 10 mg BID PO Last administered on 09/19/16 20:44; Start 09/19/16 at 11:00; Stop 09/20/16 at 08:51; Status DC Vancomycin HCl (Vanco Per Pharmacy) 1 each PRN DAILY PRN MC SEE COMMENTS Last administered on 09/19/16 15:36; Start 09/19/16 at 10:30 Lubiprostone (Amitiza) 24 mcg BIDWMEALS PO Last administered on 09/19/16 17:34 ; Start 09/19/16 at 12:00 Vancomycin HCl 2 gm/Sodium Chloride 500 ml @ 250 mls/hr 1X ONCE IV Last administered on 09/19/16 14:33; Start 09/19/16 at 10:45; Stop 09/19/16 at 12:44; Status DC Acetaminophen (Tylenol) 325 mg PRN Q6HRS PRN PO MILD PAIN / TEMP; Start at 10:30 Hydralazine HCl (Apresoline) 10 mg PRN Q4HRS PRN IVP ELEVATED BP, SEE COMMENTS ; Start 09/19/16 at 10:30 Ondansetron HCl (Zofran) 4 mg PRN Q8HRS PRN IV NAUSEA/VOMITING; Start 09/19/16 at 10:30; Stop 09/19/16 at 16:57; Status DC Albuterol Sulfate (Ventolin Neb Soln) 2.5 mg PRN Q4HRS PRN NEB SHORTNESS OF BREATH; Start 09/19/16 at 10:30 Magnesium Hydroxide (Milk Of Magnesia) 2,400 mg PRN Q12HR PRN PO CONSTIPATION; Start 09/19/16 at 10:30; Stop 09/19/16 at 14:48; Status DC Bisacodyl (Dulcolax Supp) 10 mg PRN DAILY PRN MS CONSTIPATION; Start 09/19/16 at 10:30 Polyethylene Glycol (miraLAX PACKET) 17 gm DAILY PO ; Start 09/19/16 at 11:00 Digoxin (Lanoxin) 125 mcg DAILY PO ; Start 09/19/16 at 13:00 Metoprolol Succinate (Toprol Xl) 50 mg DAILY PO ; Start 09/19/16 at 15:00; Stop 09/20/16 at 10:36; Status DC Phytonadione (Vitamin K) 5 mg 1X ONCE SQ Last administered on 09/19/16 17:34; Start 09/19/16 at 14:45; Stop 09/19/16 at 14:50; Status DC Vancomycin HCl 1.75 gm/Sodium Chloride 500 ml @ 250 mls/hr Q24H IV ; Start 09/20 at 15:00 Vancomycin HCl 1 each 1X ONCE MC ; Start 09/21/16 at 14:30; Stop 09/21/16 at 14 :31 Ondansetron HCl (Zofran) 4 mg PRN Q6HRS PRN IV NAUSEA/VOMITING Last administered on 09/20/16 05:44; Start 09/19/16 at 17:00 Metoclopramide HCl (Reglan) 5 mg 1X ONCE IV Last administered on 09/19/16 17: 35; Start 09/19/16 at 17:00; Stop 09/19/16 at 17:01; Status DC Prochlorperazine Edisylate (Compazine) 10 mg PRN Q6HRS PRN IV NAUSEA/VOMITING Last administered on 09/20/16 11:42; Start 09/19/16 at 20:30; Stop 09/20/16 at 20: 29 Mexiletine HCl (Mexitil) 200 mg BID PO ; Start 09/20/16 at 09:00 Midodrine (Proamatine) 10 mg PRN BID PRN PO HYPOTENSION; Start 09/20/16 at 21:00 Phytonadione (Vitamin K) 5 mg 1X ONCE SQ Last administered on 09/20/16 11:27; Start 09/20/16 at 09:00; Stop 09/20/16 at 09:03; Status DC Phytonadione 10 mg/Sodium Chloride 51 ml @ 102 mls/hr 1X ONCE IV Last administered on 09/20/16 11:28; Start 09/20/16 at 11:00; Stop 09/20/16 at 11:29; Status DC Calcium Gluconate (Calcium Gluconate) 1,000 mg 1X ONCE IVP Last administered on 09/20/16 11:20; Start 09/20/16 at 10:30; Stop 09/20/16 at 10:31; Status DC Metoprolol Succinate (Toprol Xl) 25 mg DAILY PO ; Start 09/21/16 at 09:00 Sodium Polystyrene Sulfonate (Kayexalate) 30 gm 1X ONCE PO Last administered on 09/20/16 11:42; Start 09/20/16 at 11:45; Stop 09/20/16 at 11:46; Status DC Active Scripts Active Acetaminophen-Cod #3 Tablet (Acetaminophen/Codeine Phosphate) 1 Each Tablet 1 Tab PO PRN Q4HRS PRN Pantoprazole Sodium 40 Mg Tablet.dr 40 Mg PO DAILYAC Mapap (Acetaminophen) 325 Mg Tablet 650 Mg PO PRN Q6HRS PRN Furosemide 20 Mg Tablet 20 Mg PO [id number] Metoprolol Tartrate 25 Mg Tablet 25 Mg PO BID Klor-Con M20 (Potassium Chloride) 20 Meq Tab.er.prt 1 Tab PO DAILY NITRO-DUR 0.2mg/hr (Nitroglycerin) 1 Each Patch.td24 1 Each TD DAILY Reported Zofran Odt (Ondansetron) 4 Mg Tab.rapdis 1 Tab SL PRN Q8HRS PRN Triamcinolone Acetonide 0.1% Oint (Triamcinolone Acetonide) 15 Gm Oint...g. 1 Mg TOP BID Spironolactone 25 Mg Tablet 25 Mg PO DAILY Sennosides 8.6 Mg Tablet 8.6 Mg PO BID Ondansetron Hcl 4 Mg Tablet 4 Mg PO PRN Q6HRS PRN Milk Of Magnesia (Magnesium Hydroxide) 2,400 Mg/10 Ml Oral.susp 2,400 Mg PO DAILY PRN Midodrine Hcl 10 Mg Tablet 10 Mg PO BID Mexiletine Hcl 200 Mg Capsule 200 Mg PO TID Meclizine Hcl 25 Mg Tablet 25 Mg PO PRN Q8HRS PRN Fleet Enema (Na Phos,M-B/Na Phos,Di-Ba) 133 Ml Enema 1 Each RC DAILY PRN Dulcolax (Bisacodyl) 10 Mg Supp.rect 10 Mg RC PRN DAILY PRN Docusate Sodium 100 Mg Capsule 1 Cap PO BID Calcium Citrate - Vit D3 Tab (Calcium Citrate/Vitamin D3) 1 Each Tablet 1 Each PO BID Bumetanide 1 Mg Tablet 1 Mg PO DAILY Bumetanide 1 Mg Tablet 0.5 Mg PO DAILY16 Benadryl (Diphenhydramine Hcl) 25 Mg Capsule 50 Mg PO PRN Q6HRS PRN Amiodarone Hcl 400 Mg Tablet 400 Mg PO HS Allopurinol 100 Mg Tablet 100 Mg PO DAILY Artificial Tears Eye Drops (Dextran 70/Hypromellose) 15 Ml Drops 1 Drop EACHEYE PRN QID PRN Restasis (Cyclosporine) 1 Each Droperette 1 Drop EACHEYE BID Eliquis (Apixaban) 5 Mg Tablet 5 Mg PO BID Eliquis (Apixaban) 5 Mg Tablet 5 Mg PO BID Gabapentin 300 Mg Capsule 300 Mg PO TID Proair Hfa Inhaler (Albuterol Sulfate) 8.5 Gm Hfa.aer.ad 2 Puff IH PRN Q4-6HRS Calcium 600 + Vit D Caplet (Calcium Carbonate/Vitamin D3) 1 Each Tablet 2 Each PO BID Levocetirizine Dihydrochloride 5 Mg Tablet 5 Mg PO QEVNG Asacol Hd (Mesalamine) 800 Mg Tablet.dr 800 Mg PO TID Iron (Ferrous Sulfate) 325 Mg Tablet 325 Mg PO DAILY Aspir 81 (Aspirin) 81 Mg Tablet. 81 Mg PO DAILY Xanax (Alprazolam) 0.25 Mg Tablet 0.25 Mg PO QID Lamotrigine 200 Mg Tablet 200 Mg PO BID Ambien (Zolpidem Tartrate) 10 Mg Tablet 10 Mg PO HS PRN Daily Vitamin (Multivitamin) 1 Each Tablet 1 Each PO DAILY Folic Acid 1 Mg Tablet 1 Mg PO DAILY Fish Oil 1,000 Mg Capsule ([place]-3 Fatty Acids/Fish Oil) 1 Each Capsule 1 Each PO DAILY Allergies Allergies: Coded Allergies: erythromycin base (Verified Allergy, Intermediate, 08/01/14) hydrocodone (Verified Allergy, Intermediate, SEE COMMENT, 06/09/15) PT REPORTS TO RN THAT SHE TOLERATES CODEINE WITHOUT COMPLICATIONS. ROS General: YES: Fatigue, Malaise PSYCHOLOGICAL ROS: YES: Anxiety, Depression Eyes: Yes Decreased vision HEENT: YES: Heacaches Respiratory: YES: Cough Gastrointestinal: Yes Nausea, Yes Vomiting, Yes Diarrhea Genitourinary: YES Frequency Musculoskeletal: Yes Muscular Weakness Neurological: Yes Weakness Skin: Yes Dry Skin Physical Exam General: Alert, Oriented X3, Cooperative, No acute distress HEENT: Atraumatic, PERRLA, EOMI, Mucous membr. moist/pink Lungs: Clear to auscultation, Normal air movement Heart: Regular rate, Normal S1, Normal S2, No murmurs Abdomen: Normal bowel sounds, Soft, No tenderness Extremities: Normal pulses Skin: No breakdown Neuro: Normal speech, Cranial nerves 3-12 NL Psych/Mental Status: Mood NL MUSCULOSKELETAL: No deformity, No swelling Vitals VITALS Vital Signs Date Time Temp Pulse Resp B/P (MAP) Pulse Ox O2 Delivery O2 Flow Rate FiO2 09/20/16 10:48 97.7 86 20 106/61 (76) 92 Room Air 97.7 Labs Labs Laboratory Tests Test 09/19/16 04:25 09/19/16 07:31 09/19/16 08:00 09/19/16 10:07 White Blood Count 15.8 x10^3/uL (4.0-11.0) Red Blood Count 3.86 x10^6/uL (3.50-5.40) Hemoglobin 11.5 g/dL (12.0-15.5) Hematocrit 35.8 % (36.0-47.0) Mean Corpuscular Volume 93 fL (79-100) Mean Corpuscular Hemoglobin 30 pg (25-35) Mean Corpuscular Hemoglobin Concent 32 g/dL (31-37) Red Cell Distribution Width 15.3 % (11.5-14.5) Platelet Count 310 x10^3/uL (140-400) Neutrophils (%) (Auto) 86 % (31-73) Lymphocytes (%) (Auto) 5 % (24-48) Monocytes (%) (Auto) 8 % (0-9) Eosinophils (%) (Auto) 0 % (0-3) Basophils (%) (Auto) 0 % (0-3) Neutrophils # (Auto) 13.7 x10^3uL (1.8-7.7) Lymphocytes # (Auto) 0.9 x10^3/uL (1.0-4.8) Monocytes # (Auto) 1.2 x10^3/uL (0.0-1.1) Eosinophils # (Auto) 0.0 x10^3/uL (0.0-0.7) Basophils # (Auto) 0.1 x10^3/uL (0.0-0.2) Segmented Neutrophils % 87 % (35-66) Band Neutrophils % 1 % (0-9) Lymphocytes % 5 % (24-48) Monocytes % 7 % (0-10) Nucleated Red Blood Cells 3 Platelet Estimate Adequate (ADEQUATE) Large Platelets Present Polychromasia Present Sodium Level 135 mmol/L (136-145) Potassium Level 4.9 mmol/L (3.5-5.1) Chloride Level 97 mmol/L (98-107) Carbon Dioxide Level 23 mmol/L (21-32) Anion Gap 15 (6-14) Blood Urea Nitrogen 34 mg/dL (7-20) Creatinine 2.1 mg/dL (0.6-1.0) Estimated GFR (Cockcroft-Gault) 24.2 BUN/Creatinine Ratio 16 (6-20) Glucose Level 152 mg/dL (70-99) Calcium Level 9.1 mg/dL (8.5-10.1) Magnesium Level 2.8 mg/dL (1.8-2.4) Total Bilirubin 1.5 mg/dL (0.2-1.0) Aspartate Amino Transf (AST/SGOT) 877 U/L (15-37) Alanine Aminotransferase (ALT/SGPT) 775 U/L (14-59) Alkaline Phosphatase 121 U/L (46-116) Total Protein 6.8 g/dL (6.4-8.2) Albumin 3.4 g/dL (3.4-5.0) Albumin/Globulin Ratio 1.0 (1.0-1.7) Triglycerides Level 93 mg/dL (0-150) Cholesterol Level 104 mg/dL (0-200) LDL Cholesterol, Calculated 66 mg/dL (0-100) VLDL Cholesterol, Calculated 19 mg/dL (0-40) Non-HDL Cholesterol Calculated 85 mg/dL (0-129) HDL Cholesterol 19 mg/dL (40-60) Cholesterol/HDL Ratio 5.5 Lipase 303 U/L (73-393) Hepatitis A IgM Antibody Negative (Negative) Hepatitis B Surface Antigen Negative (Negative) Hepatitis B Core IgM Antibody Negative (Negative) Hepatitis C Antibody <0.1 s/co ratio Glucose (Fingerstick) 115 mg/dL (70-99) 96 mg/dL (70-99) Nasal Screen MRSA (PCR) Negative (Negative) Test 09/19/16 11:40 09/19/16 13:20 09/19/16 16:37 09/19/16 21:56 Prothrombin Time 60.1 SEC (11.7-14.0) Prothromb Time International Ratio 7.6 (0.8-1.1) Urine Collection Type Unknown Urine Color Fani Urine Clarity Cloudy Urine pH 5.0 Urine Specific [place] 1.025 Urine Protein 100 mg/dL (NEG-TRACE) Urine Glucose (UA) Negative mg/dL (NEG) Urine Ketones (Stick) Negative mg/dL (NEG) Urine Blood Trace (NEG) Urine Nitrite Negative (NEG) Urine Bilirubin Small (NEG) Urine Urobilinogen Dipstick 1.0 mg/dL (0.2 mg/dL) Urine Leukocyte Esterase Small (NEG) Urine RBC 3-5 /HPF (0-2) Urine WBC 5-10 /HPF (0-4) Urine Squamous Epithelial Cells Many /LPF Urine Amorphous Sediment Present /HPF Urine Bacteria Many /HPF (0-FEW) Urine Hyaline Casts Many /HPF Urine Mucus Marked /LPF Glucose (Fingerstick) 190 mg/dL (70-99) 167 mg/dL (70-99) Test 09/20/16 06:55 09/20/16 07:35 09/20/16 07:50 09/20/16 08:12 White Blood Count 34.0 x10^3/uL (4.0-11.0) Red Blood Count 3.82 x10^6/uL (3.50-5.40) Hemoglobin 11.4 g/dL (12.0-15.5) Hematocrit 36.4 % (36.0-47.0) Mean Corpuscular Volume 95 fL (79-100) Mean Corpuscular Hemoglobin 30 pg (25-35) Mean Corpuscular Hemoglobin Concent 31 g/dL (31-37) Red Cell Distribution Width 16.5 % (11.5-14.5) Platelet Count 300 x10^3/uL (140-400) Neutrophils (%) (Auto) 90 % (31-73) Lymphocytes (%) (Auto) 2 % (24-48) Monocytes (%) (Auto) 8 % (0-9) Eosinophils (%) (Auto) 0 % (0-3) Basophils (%) (Auto) 0 % (0-3) Neutrophils # (Auto) 30.4 x10^3uL (1.8-7.7) Lymphocytes # (Auto) 0.6 x10^3/uL (1.0-4.8) Monocytes # (Auto) 2.8 x10^3/uL (0.0-1.1) Eosinophils # (Auto) 0.0 x10^3/uL (0.0-0.7) Basophils # (Auto) 0.1 x10^3/uL (0.0-0.2) Segmented Neutrophils % 79 % (35-66) Band Neutrophils % 10 % (0-9) Lymphocytes % 3 % (24-48) Monocytes % 7 % (0-10) Metamyelocytes % 1 % (0-0) Nucleated Red Blood Cells 4 Platelet Estimate Adequate (ADEQUATE) Giant Platelets Few Polychromasia Slight Anisocytosis Slight Sodium Level 135 mmol/L (136-145) Potassium Level 5.6 mmol/L (3.5-5.1) Chloride Level 96 mmol/L (98-107) Carbon Dioxide Level 17 mmol/L (21-32) Anion Gap 22 (6-14) Blood Urea Nitrogen 52 mg/dL (7-20) Creatinine 2.8 mg/dL (0.6-1.0) Estimated GFR (Cockcroft-Gault) 17.4 Glucose Level 62 mg/dL (70-99) Calcium Level 9.1 mg/dL (8.5-10.1) Glucose (Fingerstick) 65 mg/dL (70-99) 67 mg/dL (70-99) Prothrombin Time 102.9 SEC (11.7-14.0) Prothromb Time International Ratio > 15.0 (0.8-1.1) Test 09/20/16 08:39 09/20/16 09:20 09/20/16 09:45 09/20/16 11:33 Glucose (Fingerstick) 67 mg/dL (70-99) 107 mg/dL (70-99) 151 mg/dL (70-99) Fibrinogen 356 mg/dL (200-440) Laboratory Tests Test 09/19/16 13:20 09/19/16 16:37 09/19/16 21:56 09/20/16 06:55 Urine Collection Type Unknown Urine Color Fani Urine Clarity Cloudy Urine pH 5.0 Urine Specific [place] 1.025 Urine Protein 100 mg/dL (NEG-TRACE) Urine Glucose (UA) Negative mg/dL (NEG) Urine Ketones (Stick) Negative mg/dL (NEG) Urine Blood Trace (NEG) Urine Nitrite Negative (NEG) Urine Bilirubin Small (NEG) Urine Urobilinogen Dipstick 1.0 mg/dL (0.2 mg/dL) Urine Leukocyte Esterase Small (NEG) Urine RBC 3-5 /HPF (0-2) Urine WBC 5-10 /HPF (0-4) Urine Squamous Epithelial Cells Many /LPF Urine Amorphous Sediment Present /HPF Urine Bacteria Many /HPF (0-FEW) Urine Hyaline Casts Many /HPF Urine Mucus Marked /LPF Glucose (Fingerstick) 190 mg/dL (70-99) 167 mg/dL (70-99) White Blood Count 34.0 x10^3/uL (4.0-11.0) Red Blood Count 3.82 x10^6/uL (3.50-5.40) Hemoglobin 11.4 g/dL (12.0-15.5) Hematocrit 36.4 % (36.0-47.0) Mean Corpuscular Volume 95 fL (79-100) Mean Corpuscular Hemoglobin 30 pg (25-35) Mean Corpuscular Hemoglobin Concent 31 g/dL (31-37) Red Cell Distribution Width 16.5 % (11.5-14.5) Platelet Count 300 x10^3/uL (140-400) Neutrophils (%) (Auto) 90 % (31-73) Lymphocytes (%) (Auto) 2 % (24-48) Monocytes (%) (Auto) 8 % (0-9) Eosinophils (%) (Auto) 0 % (0-3) Basophils (%) (Auto) 0 % (0-3) Neutrophils # (Auto) 30.4 x10^3uL (1.8-7.7) Lymphocytes # (Auto) 0.6 x10^3/uL (1.0-4.8) Monocytes # (Auto) 2.8 x10^3/uL (0.0-1.1) Eosinophils # (Auto) 0.0 x10^3/uL (0.0-0.7) Basophils # (Auto) 0.1 x10^3/uL (0.0-0.2) Segmented Neutrophils % 79 % (35-66) Band Neutrophils % 10 % (0-9) Lymphocytes % 3 % (24-48) Monocytes % 7 % (0-10) Metamyelocytes % 1 % (0-0) Nucleated Red Blood Cells 4 Platelet Estimate Adequate (ADEQUATE) Giant Platelets Few Polychromasia Slight Anisocytosis Slight Sodium Level 135 mmol/L (136-145) Potassium Level 5.6 mmol/L (3.5-5.1) Chloride Level 96 mmol/L (98-107) Carbon Dioxide Level 17 mmol/L (21-32) Anion Gap 22 (6-14) Blood Urea Nitrogen 52 mg/dL (7-20) Creatinine 2.8 mg/dL (0.6-1.0) Estimated GFR (Cockcroft-Gault) 17.4 Glucose Level 62 mg/dL (70-99) Calcium Level 9.1 mg/dL (8.5-10.1) Test 09/20/16 07:35 09/20/16 07:50 09/20/16 08:12 09/20/16 08:39 Glucose (Fingerstick) 65 mg/dL (70-99) 67 mg/dL (70-99) 67 mg/dL (70-99) Prothrombin Time 102.9 SEC (11.7-14.0) Prothromb Time International Ratio > 15.0 (0.8-1.1) Test 09/20/16 09:20 09/20/16 09:45 09/20/16 11:33 Glucose (Fingerstick) 107 mg/dL (70-99) 151 mg/dL (70-99) Fibrinogen 356 mg/dL (200-440) Assessment/Plan Assessment/Plan IMP DEHYDRATION LADI HYPERKALEMIA CM WITH EF 15% PNEUMONIA INCREASED LFT'S PLAN ANTIBIOTICS KAYEXALATE CONT LOW FLOW IVF'S LASIX STOP ALDACTONE JEAN-PAUL HARRELL MD September 20, 2016 12:04
[2016-09-20] MEDS ORDERED: FUROSEMIDE 40 MG TABLET. PO SCH (12:30)
--- NOTE | 2016-09-20 12:33 | PDOC ---
Infectious Disease Note ROS ROS GEN: Denies fevers, chills, sweats HEENT: Denies blurred vision, sore throat CV: Denies chest pain RESP: Denies shortness of air, cough GI: Denies n/v/d NEURO: Denies confusion, dizziness MSK: Denies weakness, joint pain/swelling Vital Sign Vital Signs Vital Signs Date Time Temp Pulse Resp B/P (MAP) Pulse Ox O2 Delivery O2 Flow Rate FiO2 09/20/16 10:48 97.7 86 20 106/61 (76) 92 Room Air 97.7 Physical Exam PHYSICAL EXAM GENERAL: NAD, Alert HEENT: PERRL, OC/OP NECK: Supple, no JVD, no LN LUNGS: Clear HEART: S1S2, no gallop, no murmur ABD: Soft, NT, no organomegaly, no rebound EXT: No edema, no cyanosis ZIGZAG STITCHER: Alert, oriented x 3, no focal neurologic deficit SKIN: No rash IV: ok Labs Lab Laboratory Tests Test 09/19/16 13:20 09/19/16 16:37 09/19/16 21:56 09/20/16 06:55 Urine Collection Type Unknown Urine Color Fani Urine Clarity Cloudy Urine pH 5.0 Urine Specific [place] 1.025 Urine Protein 100 mg/dL (NEG-TRACE) Urine Glucose (UA) Negative mg/dL (NEG) Urine Ketones (Stick) Negative mg/dL (NEG) Urine Blood Trace (NEG) Urine Nitrite Negative (NEG) Urine Bilirubin Small (NEG) Urine Urobilinogen Dipstick 1.0 mg/dL (0.2 mg/dL) Urine Leukocyte Esterase Small (NEG) Urine RBC 3-5 /HPF (0-2) Urine WBC 5-10 /HPF (0-4) Urine Squamous Epithelial Cells Many /LPF Urine Amorphous Sediment Present /HPF Urine Bacteria Many /HPF (0-FEW) Urine Hyaline Casts Many /HPF Urine Mucus Marked /LPF Glucose (Fingerstick) 190 mg/dL (70-99) 167 mg/dL (70-99) White Blood Count 34.0 x10^3/uL (4.0-11.0) Red Blood Count 3.82 x10^6/uL (3.50-5.40) Hemoglobin 11.4 g/dL (12.0-15.5) Hematocrit 36.4 % (36.0-47.0) Mean Corpuscular Volume 95 fL (79-100) Mean Corpuscular Hemoglobin 30 pg (25-35) Mean Corpuscular Hemoglobin Concent 31 g/dL (31-37) Red Cell Distribution Width 16.5 % (11.5-14.5) Platelet Count 300 x10^3/uL (140-400) Neutrophils (%) (Auto) 90 % (31-73) Lymphocytes (%) (Auto) 2 % (24-48) Monocytes (%) (Auto) 8 % (0-9) Eosinophils (%) (Auto) 0 % (0-3) Basophils (%) (Auto) 0 % (0-3) Neutrophils # (Auto) 30.4 x10^3uL (1.8-7.7) Lymphocytes # (Auto) 0.6 x10^3/uL (1.0-4.8) Monocytes # (Auto) 2.8 x10^3/uL (0.0-1.1) Eosinophils # (Auto) 0.0 x10^3/uL (0.0-0.7) Basophils # (Auto) 0.1 x10^3/uL (0.0-0.2) Segmented Neutrophils % 79 % (35-66) Band Neutrophils % 10 % (0-9) Lymphocytes % 3 % (24-48) Monocytes % 7 % (0-10) Metamyelocytes % 1 % (0-0) Nucleated Red Blood Cells 4 Platelet Estimate Adequate (ADEQUATE) Giant Platelets Few Polychromasia Slight Anisocytosis Slight Sodium Level 135 mmol/L (136-145) Potassium Level 5.6 mmol/L (3.5-5.1) Chloride Level 96 mmol/L (98-107) Carbon Dioxide Level 17 mmol/L (21-32) Anion Gap 22 (6-14) Blood Urea Nitrogen 52 mg/dL (7-20) Creatinine 2.8 mg/dL (0.6-1.0) Estimated GFR (Cockcroft-Gault) 17.4 Glucose Level 62 mg/dL (70-99) Calcium Level 9.1 mg/dL (8.5-10.1) Thyroid Stimulating Hormone (TSH) 1.386 uIU/mL (0.358-3.74) Test 09/20/16 07:35 09/20/16 07:50 09/20/16 08:12 09/20/16 08:39 Glucose (Fingerstick) 65 mg/dL (70-99) 67 mg/dL (70-99) 67 mg/dL (70-99) Prothrombin Time 102.9 SEC (11.7-14.0) Prothromb Time International Ratio > 15.0 (0.8-1.1) Test 09/20/16 09:20 09/20/16 09:45 09/20/16 11:33 Glucose (Fingerstick) 107 mg/dL (70-99) 151 mg/dL (70-99) Fibrinogen 356 mg/dL (200-440) Objective Assessment Leukocytosis - ? reactive vs infection. SIRS ? Liver inflammation/constipation/ ? HAP Constipation LADI Left Lower lung consolidation Transaminitis ? meds Vomiting Pacemaker Plan Plan of Care D/c Vanc Adjust Zosyn Procalcitonin/Blood cults/Lipase and Liver test May need CT with oral contrast if worsens F/u labs D/w family Thank you # [id number] LISANDRO HAYNES MD September 20, 2016 12:33
--- NOTE | 2016-09-20 13:42 | RAD ---
Indication: Leukocytosis. Time of exam 1319 hours. Comparison is made with prior chest from 06/15/2015. The heart is enlarged. The left base is obscured by the enlarged heart. Left basilar infiltrate and consolidation cannot be entirely excluded. The right lung is clear. The pulmonary vascularity is normal. The cardiac defibrillator remains in place. No pneumothorax is seen. Impression: The left base is obscured. Infiltrate at this location cannot be excluded. The remainder of the lungs appear clear.
--- NOTE | 2016-09-20 13:50 | PDOC ---
Subjective: Subjective: Nausea ongoing but tolerating clear soda and applejuice. Pain not an issue currently. No BM. Objective: Objective: Per RN - liquid stool yesterday, facility reports last BM on 09/17. Vital Signs: Vital Signs Date Time Temp Pulse Resp B/P (MAP) Pulse Ox O2 Delivery O2 Flow Rate FiO2 09/20/16 10:48 97.7 86 20 106/61 (76) 92 Room Air 97.7 Labs: Laboratory Tests Test 09/19/16 16:37 09/19/16 21:56 09/20/16 06:55 09/20/16 07:35 Glucose (Fingerstick) 190 mg/dL 167 mg/dL 65 mg/dL White Blood Count 34.0 x10^3/uL Red Blood Count 3.82 x10^6/uL Hemoglobin 11.4 g/dL Hematocrit 36.4 % Mean Corpuscular Volume 95 fL Mean Corpuscular Hemoglobin 30 pg Mean Corpuscular Hemoglobin Concent 31 g/dL Red Cell Distribution Width 16.5 % Platelet Count 300 x10^3/uL Neutrophils (%) (Auto) 90 % Lymphocytes (%) (Auto) 2 % Monocytes (%) (Auto) 8 % Eosinophils (%) (Auto) 0 % Basophils (%) (Auto) 0 % Neutrophils # (Auto) 30.4 x10^3uL Lymphocytes # (Auto) 0.6 x10^3/uL Monocytes # (Auto) 2.8 x10^3/uL Eosinophils # (Auto) 0.0 x10^3/uL Basophils # (Auto) 0.1 x10^3/uL Segmented Neutrophils % 79 % Band Neutrophils % 10 % Lymphocytes % 3 % Monocytes % 7 % Metamyelocytes % 1 % Nucleated Red Blood Cells 4 Platelet Estimate Adequate Giant Platelets Few Polychromasia Slight Anisocytosis Slight Sodium Level 135 mmol/L Potassium Level 5.6 mmol/L Chloride Level 96 mmol/L Carbon Dioxide Level 17 mmol/L Anion Gap 22 Blood Urea Nitrogen 52 mg/dL Creatinine 2.8 mg/dL Estimated GFR (Cockcroft-Gault) 17.4 Glucose Level 62 mg/dL Calcium Level 9.1 mg/dL Total Bilirubin 2.8 mg/dL Direct Bilirubin 1.2 mg/dL Aspartate Amino Transf (AST/SGOT) 7168 U/L Alanine Aminotransferase (ALT/SGPT) 4637 U/L Alkaline Phosphatase 154 U/L Total Protein 6.3 g/dL Albumin 3.5 g/dL Thyroid Stimulating Hormone (TSH) 1.386 uIU/mL Test 09/20/16 07:50 09/20/16 08:12 09/20/16 08:39 09/20/16 09:20 Prothrombin Time 102.9 SEC Prothromb Time International Ratio > 15.0 Glucose (Fingerstick) 67 mg/dL 67 mg/dL 107 mg/dL Test 09/20/16 09:45 09/20/16 11:33 Fibrinogen 356 mg/dL Lipase 497 U/L Glucose (Fingerstick) 151 mg/dL Imaging: Abd US 09/19/16 Impression: Hepatomegaly and fatty infiltration with bidirectional flow within the portal vein. No other significant abnormality is detected. CXR 09/20/16 PENDING PE: GEN: looks ill - slightly less so compared to yesterday LUNGS: clear anteriorly HEART: RRR ABD: NABS, S/ND/NT NEURO/PSYCH: A & O 3 A/P: Elevated LFTs - worse -Hep panel neg, stopped amiodarone, abd US as above Nausea, constipation -nausea persists, tolerating liquids -varying reports of when last BM occurred ---> on Amitiza and Miralax Coagulopathy -heme following, FFP and vit K ordered Cardiomyopathy, EF 15% Leukocytosis -ID now involved LADI -- D/w Dr. Toscano. ?drug effect vs passive congestion vs autoimmune ?consider transfer to - will d/w Dr. Arvizu Will check additional labs. NYDIA PENALOZA September 20, 2016 13:50
[2016-09-20] MEDS ORDERED: VANCOMYCIN 1.75 GM in IV NORMAL SALINE 500ML BAG 500 ML IV SCH (15:00)
[2016-09-20] MEDS ORDERED: PIPERACILLIN/TAZOBACTAM 2.25 GM in IV NORMAL SALINE 50ML 50 ML IV SCH (18:00)
[2016-09-20 18:19] LABS: INR 9.1 (0.8-1.1)
[2016-09-20] MEDS ORDERED: MIDODRINE 5 MG TABLET PO PRN (21:00)
--- NOTE | 2016-09-21 01:45 | CONS ---
DATE OF CONSULTATION: 09/20/2016 REFERRING PROVIDER: Dr. Arvizu. REASON FOR CONSULTATION: Coagulopathy. 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 She was admitted to [facility] recently for palliative VT ablation, completed on 09/07/2016. Her postoperative care was somewhat complicated by need for Impella pump, hypertension, mechanical ventilation needed after the procedure. She required intubation and pressor support due to marginal blood pressures following the procedure. She required medical management, as she is apparently not a VAD/transplant candidate. She required midodrine to help with her marginal blood pressures as well. From there, she was discharged to a assisted facility, as her mother is not able to care for her at home. 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 She then underwent bilateral lumpectomies and radiation and was started on tamoxifen. She developed cardiomyopathy presumably from the Adriamycin and a defibrillator was placed. Her adjuvant endocrine therapy was completed in April 2015. On 09/09/2016, an echo was completed showing an ejection fraction of 15%. From her rehabilitation facility, she was transferred here for a few days of left-sided dull, aching abdominal pain. She also had one episode of hematochezia. This has not recurred. She overall feels very lethargic and fatigued. She has been noted to have significantly increased LFTs with an AST 877, ALT 775, alkaline phosphatase 121. All this is new from her recent admission at . Her hepatitis panel has been negative. Creatinine is also worsening at 2.8. She had an abdominal ultrasound completed at in 06/2016, which showed mild hepatosplenomegaly with no liver masses identified. Here, an abdominal ultrasound showed hepatomegaly with fatty liver infiltration and bidirectional flow within the portal vein. The size of the liver was 19.8 cm here, 19.1 cm in June. Her WBC and ANC have significantly increased as well and INR has risen from admission from 7.6-15.0. PAST MEDICAL HISTORY: Atrial fibrillation, recurrent ventricular tachycardia, heart failure, chemotherapy induced with an EF of 15%, neuropathy, bipolar, mild chronic kidney disease historically, breast cancer and endometriosis. PAST SURGICAL HISTORY: Cataract, tonsillectomy, hysterectomy, partial colon resection as part of her endometriosis surgery, bilateral lumpectomies, defibrillator placement, cholecystectomy and recent VT ablation on 09/07/2016. FAMILY HISTORY: Reviewed and negative. SOCIAL HISTORY: No tobacco, alcohol or drug use. Previously lived alone, but was living with mom due to her decreased performance status, recently admitted at a rehab facility. ALLERGIES: ERYTHROMYCIN AND HYDROCODONE. CURRENT MEDICATIONS: Vancomycin, midodrine, mexiletine, Compazine, Zofran, metoprolol, gabapentin, digoxin, Xanax, Amitiza, MiraLax, Aldactone, senna, Protonix, folic acid, iron, nitroglycerin, Colace, aspirin, allopurinol, Zosyn, Lamictal, Dulcolax, albuterol, hydralazine and Tylenol. REVIEW OF SYSTEMS: Ten-point review of systems completed and unremarkable with the exception of the fatigue, abdominal pain. No further melena or hematochezia seen. No gingival bleeding, hemoptysis, or epistaxis. IMAGING AND LABORATORY DATA: Pertinent inpatient [facility] and [facility] records reviewed as above. CT of the abdomen and pelvis here did reveal mild cardiomyopathy and a left lower lung consolidation suggesting pneumonia. ASSESSMENT AND PLAN: The patient is a 56-year-old female with the following medical problems: 1. Worsening coagulopathy, status post vitamin K 5 mg yesterday. 2. Acute hepatitis of unclear etiology. GI is following. Hepatitis panel negative. Consideration of congestive hepatitis versus amiodarone induced liver failure suggested. 3. Acute kidney insufficiency. 4. Atrial fibrillation with recent ablation attempted on 09/07/2016. Her postoperative course was apparently very complicated. 5. Chronic systolic heart failure with EF 15%. 6. Possible left lower lung consolidation, on antibiotics. 7. Worsening neutrophilia. 8. Hepatomegaly, due to fatty liver. I believe her worsening coagulopathy is due to whatever is eliciting her liver failure. Given her worsening neutrophilia, it appears she does have some infection that could certainly be contributing to these events and causing multiorgan failure. My plan is as follows: 1. FFP ordered this morning, we will repeat INR later this afternoon. 2. Repeat vitamin K 10 mg ordered. 3. Continue to hold prior to admission Eliquis. 4. Discussed with nurse and mom, low threshold for transfer to ICU if her condition worsens. Thank you for allowing me to participate in her care. Discussed with Dr. Arvizu as well. JUSTINO BARLOW DO DR: JASPER/hilary JOB#: [id number] / [id number] JOAQUIN
--- NOTE | 2016-09-21 03:31 | CONS ---
DATE OF CONSULTATION: 09/20/2016 LOCATION: The patient is in room #562. REQUESTING PHYSICIAN: Dr. Alberto Arvizu. REASON FOR CONSULTATION: Healthcare-associated pneumonia, question of sepsis. HISTORY OF PRESENT ILLNESS: The patient is a 56-year-old female, recently admitted to [facility] secondary to atrial fibrillation. She states that approximately 10 days ago, she had cardioversion and subsequently underwent an ablation. She was [facility] She has been there for over a week and now has been complaining of ongoing constipation. She states that she has had a small bowel movement x 1, and over the course of the week, she began having nausea, vomiting, and abdominal pain and was brought to Emergency Room on 09/19/2016. She had a white count of 15.8 with 87% segs and 1 band. Today, her white count increased to 34. She had 10% bands. Additionally, her creatinine was 2.1 on arrival; today, it is increased to 2.8, AST is 877, ALT 775, and alkaline phosphatase 121 on arrival. She subsequently underwent a CT scan of her abdomen and pelvis - there was a question whether there was a left lower lobe consolidation or ground-glass opacity. Right lung was clear. She had cholecystectomy and there was no obvious abnormality of the stomach, but she did have some moderate pelvic-free fluid. This was performed without contrast. Abdominal ultrasound showed no significant abnormality, except for hepatomegaly and fatty infiltration with bidirectional flow within the portal vein. She had been placed on vancomycin and Zosyn. Currently, she is sitting upright in bed. She denies any fevers or chills. She has had no headaches, and no sore throat, cough, or chest pain. Denies any dysuria or frequency. No falls or trauma. She does have a pacemaker. PAST MEDICAL HISTORY: Positive for the above-mentioned atrial fibrillation, anxiety, history of breast cancer - in remission, congestive heart failure, type 2 diabetes, hypertension, and neuropathy. Does state that she has had previous urinary tract infections. Endometriosis. PAST SURGICAL HISTORY: Positive for cholecystectomy, hysterectomy, tonsillectomy, bilateral breast lumpectomy, and bowel resection from the endometriosis. REVIEW OF SYSTEMS: As mentioned above. ALLERGIES: LISTED TO ERYTHROMYCIN, WHICH CAUSED JAUNDICE, WELL HYDROCODONE LISTED CAUSING SOME JAUNDICE. SOCIAL HISTORY: No tobacco. FAMILY HISTORY: Sister with thyroid cancer, diabetes, hypertension, and history of stroke in the family. CURRENT MEDICATIONS: Include Zosyn, vancomycin, vitamin K, albuterol, Atrovent, Zyloprim, and Xanax. Amiodarone has been discontinued. Eliquis has been discontinued. Aspirin, Colace, digoxin, ferrous sulfate, Lamictal, gabapentin, Lasix, Reglan, and midodrine. Other meds are available and have been reviewed in the chart. PHYSICAL EXAMINATION: VITAL SIGNS: She has been afebrile since her admission, current 97.7, pulse 86, respirations 20, blood pressure 106/61, and satting 92% on room air. CONSTITUTIONAL: She is cooperative. She looks a little tired, but she is in no acute distress. HEENT: Pupils are status post cataract. She has normal conjunctivae. Oral cavity, pharynx is clear. NECK: Supple. Good range of motion. No JVD. LUNGS: She had decrease in the bases, no crackles. HEART: S1, S2. Pacemaker in the left chest without signs of complications. ABDOMEN: Mildly distended with decreased bowel sounds, soft. EXTREMITIES: No clubbing, cyanosis, or gross edema. SKIN: Warm to touch without signs of rash. IV site is clean. NEUROLOGIC: She is nonfocal, moves all extremities. PSYCHIATRIC: Affect is somewhat flat. LABORATORY DATA: White count 34, hemoglobin 11.4, and platelets of 200 with 79 segs and 10 bands. Creatinine of 2.8, glucose of 62. LFTs from yesterday were reviewed in the history of present illness. Urinalysis, many bacteria, ____, many squamous cells, small leukocyte esterase, and negative nitrite. Hepatitis screen is negative. MRSA screen is negative. IMPRESSION: 1. Leukocytosis, questionable reaction versus infection with systemic inflammatory response syndrome, questionable liver inflammation, constipation, and questionable healthcare-associated pneumonia. 2. Constipation. 3. Acute kidney injury. 4. Left lower lobe consolidation. 5. Transaminitis, questionable secondary to meds. 6. Vomiting. 7. Pacemaker. RECOMMENDATIONS: We will discontinue the vancomycin given her renal failure. We will adjust her Zosyn. Obtain a procalcitonin. Blood cultures, lipase, and liver tests have been ordered, but have not been run yet, so we will re-order those, mainly a CT scan with oral contrast. If she worsens, we will follow up on her labs as discussed with her family. Thank you for allowing me to participate in this patient's care. If you have any questions, please do not hesitate to contact me. LISANDRO HAYNES MD DR: WILL/hilary JOB#: [id number] / [id number]
--- NOTE | 2016-09-21 04:34 | DS ---
DATE OF DISCHARGE: 09/20/2016 DISCHARGE DIAGNOSES: 1. Acute liver failure, MELD score more than 40, present on admission. 2. Left lower lobe pneumonia, suspected hospital-acquired pneumonia. 3. Chronic congestive heart failure with ejection fraction 15%. 4. Recent atrial fibrillation. 5. Coagulopathy due to liver failure. 6. Dehydration with intractable nausea and vomiting. 7. Acute kidney injury with chronic kidney disease. 8. Hyperkalemia. 9. History of breast cancer, in remission. 10. Leukocytosis. 11. Hyperglycemia. BRIEF HOSPITAL COURSE: A 56-year-old female patient admitted to the hospital for nausea, vomiting, abdominal pain. Initial imaging studies such as CT of the abdomen showed left lower lobe pneumonia and mild cardiomegaly, no acute process seen and also she had an echocardiogram, which showed an LV ejection fraction of 15% and also she had an ultrasound of the abdomen for abnormal LFTs, which showed hepatomegaly with fatty infiltration. During the hospitalization, she was placed on broad-spectrum antibiotics for healthcare-associated pneumonia, Zosyn and vancomycin. Vancomycin has been dosed according to renal function. By the second day, the patient's clinical picture got worse with worsening liver function tests and coagulopathy. She received FFP and vitamin K, and oral anticoagulation was held, no obvious bleeding noted, hemodynamically stable; however, after discussion held with the subspecialists, GI and Oncology, it is recommended to transfer the patient to tertiary care center where liver transplant is amenable. I did discuss with the Dr. Da Silva at [facility] and the patient has been accepted and she is stable to transfer. The above has been discussed with the nursing staff. DISCHARGE PHYSICAL EXAMINATION: Please see my progress note. DISCHARGE CONDITION: Stable. PROGNOSIS: Guarded. DISCHARGE MEDICATIONS: Please see discharge MRAD. Total time spent for discharge and admission progress note, total critical care time is 35 minutes. GAGE CAMARILLO MD DR: BRYAN/hilary JOB#: [id number] / [id number] JOAQUIN
[2016-09-21] MEDS ORDERED: METOPROLOL SUCC 24HR ER 25 MG TAB.ER.24H. PO SCH (09:00)
[2016-09-22 14:31] LABS: MITOCHONDRIAL ABDY 5.3 Units (0.0-20.0); SMOOTH MUSCLE AB 9 Units (0-19)
== END 2016-09-20 21:00 | disposition short-term general hospital (02) | DRG 441 ==
LOC: ER 02:50 → 5 SOUTH 05:10
PROVIDERS: ADMIT Internal Medicine; ATTEND Internal Medicine
DX: K72.00 Acute and subacute hepatic failure without coma (principal); J18.9 Pneumonia, unspecified organism; K62.5 Hemorrhage of anus and rectum; N17.9 Acute kidney failure, unspecified; B17.9 Acute viral hepatitis, unspecified; D68.4 Acquired coagulation factor deficiency; I13.0 Hypertensive heart and chronic kidney disease with heart failure and stage 1 through stage 4 chronic kidney disease, or unspecified chronic kidney disease; I42.7 Cardiomyopathy due to drug and external agent; I50.22 Chronic systolic (congestive) heart failure; C50.919 Malignant neoplasm of unspecified site of unspecified female breast; E11.22 Type 2 diabetes mellitus with diabetic chronic kidney disease; E11.42 Type 2 diabetes mellitus with diabetic polyneuropathy; E11.649 Type 2 diabetes mellitus with hypoglycemia without coma; E86.0 Dehydration; E87.5 Hyperkalemia; F32.9 Major depressive disorder, single episode, unspecified; F41.9 Anxiety disorder, unspecified; I48.0 Paroxysmal atrial fibrillation; K59.00 Constipation, unspecified; K76.0 Fatty (change of) liver, not elsewhere classified; M81.0 Age-related osteoporosis without current pathological fracture; N18.2 Chronic kidney disease, stage 2 (mild); M19.90 Unspecified osteoarthritis, unspecified site; Y95 Nosocomial condition; Z79.810 Long term (current) use of selective estrogen receptor modulators (SERMs); Z80.8 Family history of malignant neoplasm of other organs or systems; Z82.3 Family history of stroke; Z82.49 Family history of ischemic heart disease and other diseases of the circulatory system; Z83.3 Family history of diabetes mellitus; Z85.3 Personal history of malignant neoplasm of breast; Z87.440 Personal history of urinary (tract) infections; Z88.1 Allergy status to other antibiotic agents; Z90.49 Acquired absence of other specified parts of digestive tract; Z92.21 Personal history of antineoplastic chemotherapy; Z95.0 Presence of cardiac pacemaker; Z90.710 Acquired absence of both cervix and uterus
CPT/HCPCS: 36415; 71010; 74022; 74176; 76705; 80048; 80053; 80061; 80074; 80076; 81001; 82140; 82947; 83520; 83690; 83735; 84145; 84443; 85007; 85027; 85384; 85610; 85611; 86255; 86850; 86900; 86901; 86927; 87040; 87086; 87186; 87641; 93005; 93306; 94250; 94760; J0610; J0780; J2270; J2405; J2543; J2765; J3370; J3430; J7030; J7040; P9017; Q0162; 83516; 99285-25